=== PATIENT | female | born 1945 | race Caucasian/White ===

== ENCOUNTER 2018-03-20 20:34 | Inpatient (IN) | payer OTHER, BC ==
--- NOTE | 2018-03-20 21:03 | PDOC ---
History of Present Illness <Ayde Tang - Last Filed: 03/20/18 22:15> - History of Present Illness Initial Comments: 03/20/18 20:59 72yo F with history of HTN and HLD who presents today s/p unwitnessed fall. pt reports having an alcoholic beverage and standing up too fast. Pt reports losing her footing at this time due to her dog and falling hitting her R bottom ear and R hip. Pt denies any anticoagulation or loss of conscious. Pt denies any headaches, dizziness, blurred vision, SOB, CP/discomfort, palpitations (now and prior to fall), urinary incontinence, abdominal pain, back pain. <Federico Mendosa - Last Filed: 03/21/18 00:02> - General Chief Complaint: Injury Stated Complaint: FALL Time Seen by Provider: 03/20/18 20:47 Past History <Ayde Tang - Last Filed: 03/20/18 22:15> - Past Medical History COPD: No HTN: Yes Hypercholesterolemia: Yes - Suicide/Smoking/Psychosocial Hx Smoking History: Never smoked Have you smoked in the past 12 months: No Information on smoking cessation initiated: No Hx Alcohol Use: No Drug/Substance Use Hx: No Substance Use Type: None <DeondreFederico - Last Filed: 03/21/18 00:02> - Past Medical History Allergies/Adverse Reactions: Allergies Allergy/AdvReac Type Severity Reaction Status Date / Time No Known Allergies Allergy Verified 03/20/18 21:31 Home Medications: Ambulatory Orders Aspirin/Calcium Carbonate [Barbara Women's Aspirin Tablet] 650 each PO DAILY 03/20 Diazepam [Valium] 5 mg PO ONCE 03/20/18 Quinapril HCl [Accupril] 10 mg PO DAILY 03/20/18 Simvastatin [Zocor -] 40 mg PO DAILY 03/20/18 Review of Systems - Review of Systems Constitutional: No: Chills, Fever, Malaise, Night Sweats HEENTM: No: Blurred Vision, Nose Congestion, Throat Pain Respiratory: No: Cough, Shortness of Breath, Wheezing Cardiac (ROS): No: Chest Pain, Irregular Heart Rate, Lightheadedness, Palpitations, Syncope, Chest Tightness ABD/GI: Yes: Poor Fluid Intake. No: Constipated, Diarrhea, Nausea, Vomiting, Abdominal cramping : No: Dysuria, Frequency, Flank Pain, Incontinence Musculoskeletal: Yes: Joint Pain. No: Back Pain, Muscle Pain, Neck Pain Integumentary: No: Bruising, Pallor, Rash Neurological: No: Headache, Numbness, Tingling, Weakness, Dizziness Hematologic/Lymphatic: No: Easy Bleeding, Easy Bruising <Federico Mendosa - Last Filed: 03/21/18 00:02> *Physical Exam - Vital Signs Last Vital Signs Temp Pulse Resp BP Pulse Ox 98.0 F 81 18 131/80 96 03/20/18 20:45 03/20/18 20:45 03/20/18 20:45 03/20/18 20:45 03/20/18 20:45 <Ayde Tang - Last Filed: 03/20/18 22:15> - Vital Signs Last Vital Signs Temp Pulse Resp BP Pulse Ox 98.0 F 81 18 131/80 96 03/20/18 20:45 03/20/18 20:45 03/20/18 20:45 03/20/18 20:45 03/20/18 20:45 - Physical Exam Comments: 03/20/18 21:21 GEN: NAD, awake, alert, alcohol odor HEENT: normocephalic, EOMI, BERTHA, sclera anicteric, R ear abrasions noted, no otorrhea, no structural deformity NECK: No instability noted, no pain to palpation of spinous processes, ROM intact, no JVD, supple LUNGS: CTA bilaterally CARDIAC: RRR no murmurs appreciated ABD: Soft, NT/ND, normoactive BS, no rebound, no guarding EXT: RLE: Externally rotated, motor function intact with strength 5/5 with dorsal and plantar flexion, sensation intact in all areas, no edema, no ecchymotic areas at hip site, pain with any movement and palpation of inguinal area, 2+ DP pulses LLE: ROM intact, no edema, 2+ DP pulse, strength 5/5, sensation intact throughout <Federico Mendosa - Last Filed: 03/21/18 00:02> Heart Score/ECG Review #1 03/20/18 22:12 NSR @93 bpm, normal axis, normal R-wave progression, no ST abnormalities, no TWI , MN 170ms, QTc 465ms <Federico Mendosa - Last Filed: 03/21/18 00:02> ED Treatment Course - RADIOLOGY Radiograph Interpretation: 03/20/18 22:[address] Impression: No CT evidence of acute intracranial pathology Reported By: Salvador Echeverria MD [id number]/20/[id number] <Ayde Tang - Last Filed: 03/20/18 22:15> - LABORATORY CBC & Chemistry Diagram: 03/20/18 22:15 03/20/18 22:15 - RADIOLOGY Radiology Studies Ordered: Category Date Time Status HEAD CT WITHOUT CONTRAST [CT] Stat CT Scan 03/20/18 20:56 Ordered CHEST X-RAY PORTABLE* [RAD] Stat Radiology 03/20/18 20:56 Ordered PELVIS [RAD] Stat Radiology 03/20/18 20:56 Ordered PELVIS [RAD] Stat Radiology 03/20/18 20:56 Stop Req <Federico Mendosa - Last Filed: 03/21/18 00:02> Medical Decision Making - Medical Decision Making 03/20/18 21:04 Highly suspicious for R hip fracture due to externally rotated leg and extreme pain on ROM with neurovascular component intact --Due to [place] CT criteria Head Ct advised for age above 65yo alone --CBC, CMP, CXR, EKG, Type and screen, PT/INR, aPtt, Head CT noncontrast, R Pelvis and hip XR --Alcohol level ordered 03/20/18 21:39 R hip and Pelvis XR reveals intertrochanteric comminuted fracture --Most likely Cont[place]ras classification Type [address] Mi Sal insert 03/20/18 21:49 Dr. Stark responded --NPO after midnight --Surgery in the AM --NPO after midnight --Morphine 2mg IVP for pain control --Tetanus booster due to abrasions 03/20/18 22:12 EKG - without acute abnormalities <Federico Mendosa - Last Filed: 03/21/18 00:02> *DC/Admit/Observation/Transfer <Ayde Tang - Last Filed: 03/20/18 22:15> - Discharge Dispostion Admit: Yes <Federico Mendosa - Last Filed: 03/21/18 00:02> Diagnosis at time of Disposition: Intertrochanteric fracture of right hip Qualifiers: Encounter type: initial encounter Fracture type: closed Fracture alignment: nondisplaced Qualified Code(s): S72.144A - Nondisplaced intertrochanteric fracture of right femur, initial encounter for closed fracture - Discharge Dispostion Condition at time of disposition: Stable - Referrals Referrals: Billy Mcconnell MD [Primary Care Provider] -
[2018-03-20] MEDS ORDERED: morphine CARPU-JECT 2 MG/1 ML DISP.SYRIN IVPUSH ONE (21:48)
[2018-03-20] MEDS ORDERED: DIPHTH,PERTUSS(ACELL),TET 0.5 ML DISP.SYRIN IM ONE (21:48)
[2018-03-20] MEDS ORDERED: SODIUM CHLORIDE 0.9% 1000 ML INFUS.BAG IV ONE (21:48)
[2018-03-20] MEDS ORDERED: morphine SULFATE 4 MG/ML VIAL ONE (21:53)
--- NOTE | 2018-03-20 21:53 | PDOC ---
Attending Attestation - HPI HPI: 03/20/18 21:58 Patient is a 72 year old female with PMHx of HTN and HLD who presents today s/p unwitnessed fall. Patient states that she was walking her dog when she got up and lost her footing, hitting her right ear and injuring her right hip. She is also complains of right groin pain. . Patient reports that she had 2 alcoholic beverages prior to falling.She states that she takes 2 asprin/day. She is aware that this puts her at risk for internal bleeding. Patient denies taking any pain medications prior to arrival. Patient denies any loss of consciousness. Patient denies chest pain, shortness of breath, headache, blurry vision, changes in vision, dizziness, numbness or tingling, dysuria, abdominal, or back pain. PCP: Sandoval Mcconnell Orthopedist: Chato Stark - Physicial Exam PE: 03/20/18 22:01 Constitutional: Awake, alert, oriented. No acute distress. Head: Normocephalic. Atraumatic Eyes: PERRL. EOMI. Conjunctivae are not pale. ENT: Tenderness and abrasion to right ear. Mucous membranes are moist and intact. Posterior pharynx without exudates or erythema. Uvula midline. Neck: Supple. Full ROM. No lymphadenopathy. Cardiovascular: Regular rate. Regular rhythm. S1, S2 regular. Distal pulses are 2+ and symmetric. Pulmonary/Chest: No evidence of respiratory distress. Clear to auscultation bilaterally No wheezing, rales or rhonchi. Abdominal: Soft and non-distended. There is no tenderness. No rebound, guarding or rigidity. No organomegaly. No palpable masses. Good bowel sounds. Back: No CVA tenderness. Musculoskeletal: Right hip tenderness, RLE externally rotated and shortened. Strength intact. No edema. No cyanosis. No clubbing. No calf tenderness. Radial/pedal pulses are intact and 2+ bilaterally Skin: Skin is warm and dry. No petechiae. No purpura. Neurological: Alert and oriented to person, place, and time. Cranial nerves II -XII are grossly intact. Normal speech. Strength is grossly symmetric. No sensory deficits. Psychiatric: Good eye contact. Normal interaction, affect and behavior. <Ayde Tang - Last Filed: 03/20/18 22:00> - Resident Resident Name: Federico Mendosa - ED Attending Attestation I have performed the following: I have examined & evaluated the patient, The case was reviewed & discussed with the resident, I agree w/resident's findings & plan, Exceptions are as noted - Medical Decision Making 03/20/18 21:53 I, Dr. Lise Joseph, DO, attest that this document has been prepared under my direction and personally reviewed by me in its entirety. I further attest, that it accurately reflects all work, treatment, procedures and medical decision -making performed by me. 03/20/18 21:54 a/p: 72yo female with etoh use today and a mechanical fall -abrasion to R ear-no active bleeding -R shortened externally rotated hip w groin pain -suspect hip fracture -will check labs, ekg, cxr, head ct, pelvis/hip xray -ortho in the past has been Dr. Stark -pmd dr. mcconnell who admits to dr. woodard who is covered at night by [employer] 03/20/18 21:55 xray shows intertrochanteric R hip fx resident discussed case with Dr. stark pt updated on xray findings will need admission 03/20/18 23:[address] Bradley - accepts pt to service consult placed to ortho <Lise Joseph - Last Filed: 03/20/18 23:39>
[2018-03-20 22:25] LABS: BASO % 0.5 % (0-2.0); EOS % 1.7 % (0-4.5); HEMOGLOBIN 10.8 GM/dL (10.7-15.3); LYMPH % 10.4 % (8-40); MCH 20.5 pg (25.7-33.7); MCHC 31.6 g/dl (32.0-36.0); MEAN CELL VOLUME 64.8 fl (80-96); MEAN PLT VOLUME 8.5 fl (7.5-11.1); MONO % 4.5 % (3.8-10.2); NEUT % 82.9 % (42.8-82.8); PLATELET COUNT 226 K/MM3 (134-434); RBC 5.25 M/mm3 (3.60-5.2); RDW 15.6 % (11.6-15.6); WHITE BLOOD COUNT 14.7 K/mm3 (4.0-10.0)
[2018-03-20 22:26] LABS: ADD RBC MORPHOLOGY YES
[2018-03-20 22:54] LABS: ALBUMIN 3.8 g/dl (3.4-5.0); ANION GAP 11 (8-16); BILIRUBIN,TOTAL 0.7 mg/dL (0.2-1.0); BLOOD UREA NITROGEN 17 mg/dL (7-18); CHLORIDE 102 mmol/L (98-107); CO2 24 mmol/L (21-32); GLUCOSE,RANDOM 91 mg/dL (74-106); SGPT/ALT 33 U/L (12-78); SODIUM 137 mmol/L (136-145); TOT PROT 6.7 g/dl (6.4-8.2)
[2018-03-20 22:55] LABS: ALK PHOS 72 U/L (45-117)
[2018-03-20 22:58] LABS: POTASSIUM 4.7 mmol/L (3.5-5.1); SGOT/AST 46 U/L (15-37)
[2018-03-20 23:09] LABS: ANISOCYTOSIS 1+; OVALOCYTE 1+; PLATELET ESTIMATE ADEQUATE; TEAR DROP CELLS 1+
[2018-03-20 23:52] LABS: INR 0.96 (0.82-1.09); PROTHROMBIN TIME (PATIENT) 10.8 SEC (9.7-13.0)
[2018-03-20 23:54] LABS: URINE APPEARANCE SLCLOUDY; URINE BILIRUBIN NEGATIVE (<2.0 mg/dL); URINE BLOOD NEGATIVE (NEGATIVE); URINE COLOR YELLOW; URINE GLUCOSE (UA) NEGATIVE (NEGATIVE); URINE KETONE NEGATIVE (NEGATIVE); URINE LEUK ESTERASE NEGATIVE (NEGATIVE); URINE NITRITE NEGATIVE (NEGATIVE); URINE PROTEIN NEGATIVE (NEGATIVE); URINE UROBILINOGEN NEGATIVE mg/dL (0.2-1.0)
[2018-03-20 23:55] LABS: ACTIVATED PTT 32.2 SECONDS (26.9-34.4)
--- NOTE | 2018-03-21 00:02 | HP ---
CHIEF COMPLAINT: PCP: HISTORY OF PRESENT ILLNESS: Patient is a 72 year old female with PMHx of HTN and HLD who presents today s/p unwitnessed fall. Patient states that she was walking her dog when she got up and lost her footing, hitting her right ear and injuring her right hip. She is also complains of right groin pain. . Patient reports that she had 2 alcoholic beverages prior to falling.She states that she takes 2 asprin/day. She is aware that this puts her at risk for internal bleeding. Patient denies taking any pain medications prior to arrival. Patient denies any loss of consciousness. Patient denies chest pain, shortness of breath, headache, blurry vision, changes in vision, dizziness, numbness or tingling, dysuria, abdominal, or back pain. PCP: Sandoval Mcconnell Orthopedist: Chato Stark ER course was notable for: (1) finding of a right hip fx and right ear abrasion (2) (3) Social History: Smoking: Alcohol: + Drugs: Family History: Allergies No Known Allergies Allergy (Verified 03/20/18 21:31) HOME MEDICATIONS: Home Medications Medication Instructions Recorded Aspirin/Calcium Carbonate [Barbara 650 each PO DAILY 03/20/18 Women's Aspirin Tablet] Diazepam [Valium] 5 mg PO ONCE 03/20/18 Quinapril HCl [Accupril] 10 mg PO DAILY 03/20/18 Simvastatin [Zocor -] 40 mg PO DAILY 03/20/18 REVIEW OF SYSTEMS CONSTITUTIONAL: Absent: fever, chills, diaphoresis, generalized weakness, malaise, loss of appetite, weight change HEENT: Absent: rhinorrhea, nasal congestion, throat pain, throat swelling, difficulty swallowing, mouth swelling, ear pain, eye pain, visual changes CARDIOVASCULAR: Absent: chest pain, syncope, palpitations, irregular heart rate, lightheadedness , peripheral edema RESPIRATORY: Absent: cough, shortness of breath, dyspnea with exertion, orthopnea, wheezing, stridor, hemoptysis GASTROINTESTINAL: Absent: abdominal pain, abdominal distension, nausea, vomiting, diarrhea, constipation, melena, hematochezia GENITOURINARY: Absent: dysuria, frequency, urgency, hesitancy, hematuria, flank pain, genital pain MUSCULOSKELETAL: Absent: myalgia, arthralgia, joint swelling, back pain, neck pain, right hip pain+ SKIN: Absent: rash, itching, pallor HEMATOLOGIC/IMMUNOLOGIC: Absent: easy bleeding, easy bruising, lymphadenopathy, frequent infections ENDOCRINE: Absent: unexplained weight gain, unexplained weight loss, heat intolerance, cold intolerance NEUROLOGIC: Absent: headache, focal weakness or paresthesias, dizziness, unsteady gait, seizure, mental status changes, bladder or bowel incontinence PSYCHIATRIC: Absent: anxiety, depression, suicidal or homicidal ideation, hallucinations. PHYSICAL EXAMINATION Vital Signs - 24 hr 03/20/18 20:45 Temperature 98.0 F Pulse Rate 81 TRespiratory 18 Rate Blood Pressure 131/80 O2 Sat by Pulse 96 Oximetry (%) GENERAL: Awake, alert, and fully oriented, in no acute distress. HEAD: Normal with no signs of trauma. LUNGS: Breath sounds equal, clear to auscultation bilaterally. No wheezes, and no crackles. No accessory muscle use. HEART: Regular rate and rhythm, normal S1 and S2 without murmur, rub or gallop. ABDOMEN: Soft, nontender, not distended, normoactive bowel sounds, no guarding, no rebound, no masses. No hepatomegaly or splenomegaly. MUSCULOSKELETAL: Normal range of motion at all joints. No bony deformities or tenderness. No CVA tenderness.+ right hip pain and deformitiy with a known fx. UPPER EXTREMITIES: 2+ pulses, warm, well-perfused. No cyanosis. No clubbing. No peripheral edema. LOWER EXTREMITIES: 2+ pulses, warm, well-perfused. No calf tenderness. No peripheral edema. NEUROLOGICAL: Cranial nerves II-XII intact. Normal speech. Normal gait. PSYCHIATRIC: Cooperative. Good eye contact. Appropriate mood and affect. SKIN: Warm, dry, normal turgor, no rashes or lesions noted, normal capillary refill. Laboratory Results - last 24 hr 03/20/18 03/20/18 03/20/18 22:15 22:15 22:15 WBC 14.7 H RBC 5.25 H Hgb 10.8 Hct 34.0 MCV 64.8 L MCH 20.5 L MCHC 31.6 L RDW 15.6 Plt Count 226 MPV 8.5 Neutrophils % 82.9 H Lymphocytes % 10.4 Monocytes % 4.5 Eosinophils % 1.7 Basophils % 0.5 Hypochromia 2+ Platelet Estimate Adequate Platelet Comment No clumping noted Polychromasia 1+ Basophilic Stippling Few Anisocytosis 1+ Microcytosis 2+ Tear Drop Cells 1+ Ovalocytes 1+ Sodium 137 Potassium 4.7 Chloride 102 Carbon Dioxide 24 Anion Gap 11 BUN 17 Creatinine 1.0 Creat Clearance w eGFR 54.66 Random Glucose 91 Calcium 9.0 Total Bilirubin 0.7 AST 46 H ALT 33 Alkaline Phosphatase 72 Total Protein 6.7 Albumin 3.8 Blood Type O POSITIVE Antibody Screen Negative ASSESSMENT/PLAN: This 72 yr old female who fell landing on her right hip and abrasion to her right ear. She is noted to have a right hip fx. Problem List - Problem (1) Hip fracture Assessment/Plan: -consult to Dr. Mi austin -meme -pain meds -pre op work up Code(s): S72.009A - FRACTURE OF UNSP PART OF NECK OF UNSP FEMUR, INIT (2) Hypertension Assessment/Plan: -monitor b/p -continue home meds Code(s): I10 - ESSENTIAL (PRIMARY) HYPERTENSION Visit type - Emergency Visit Emergency Visit: Yes Care time: The patient presented to the Emergency Department on the above date and was hospitalized for further evaluation of their emergent condition. - New Patient This patient is new to me today: Yes Date on this admission: 03/21/18 - Critical Care Critical Care patient: No Hospitalist Screening - Colonoscopy Questionnaire Colonoscopy Questionnaire: Colonoscopy Questionnaire - Patient: 50 - 75 years old and never had a screening colonoscopy: Unknown History of colon or rectal polyps, or CA: Unknown History of IBD, Crohn's disease or UC: Unknown History of abdominal radiation therapy as a child: Unknown - Relative: 1 with colon or rectal CA, or polyps at age 60 or younger: Unknown Colon or rectal CA diagnosed at age 45 or younger: Unknown Multiple relatives with colon or rectal CA: Unknown - Outcome: Screening Result: Negative Screen
[2018-03-21] MEDS: DEXTROSE 5%-0.45% SALINE 1,000 ML IV SCH ×3 (00:26→14:50)
[2018-03-21] MEDS ORDERED: morphine SULFATE 4 MG/ML VIAL ONE (02:12)
[2018-03-21] MEDS: morphine SULFATE 4 MG/ML VIAL IVPUSH PRN ×5 (02:18→21:42)
[2018-03-21 04:41] VITALS: BMI 28.5
--- NOTE | 2018-03-21 09:46 | EKG ---
Test Reason : Blood Pressure : / mmHG Vent. Rate : 093 BPM Atrial Rate : 093 BPM P-R Int : 170 ms QRS Dur : 076 ms QT Int : 374 ms P-R-T Axes : 047 055 052 degrees QTc Int : 465 ms NORMAL SINUS RHYTHM WHEN COMPARED WITH ECG OF 20-FEB-2011 11:59, NO SIGNIFICANT CHANGE WAS FOUND Confirmed by GEOVANNI RESTREPO MD ([id number]) on 03/21/2018 9:46:21 AM Referred By: Confirmed By:GEOVANNI RESTREPO MD
--- NOTE | 2018-03-21 09:48 | PN ---
Progress Note, Physician Chief Complaint: Pt lying in bed in no acute distress. Reports pain is tolerable. Denies any chest discomfort, sob, n/v/d, numbness/tingling - Current Medication List Current Medications: Active Medications Dextrose/Sodium Chloride (D5-1/2ns -) 1,000 mls @ 100 mls/hr IV ASDIR EDGARDO Last Admin: 03/21/18 00:26 Dose: 100 mls/hr Morphine Sulfate (Morphine Sulfate) 2 mg IVPUSH Q4H PRN PRN Reason: PAIN LEVEL 6-10 Last Admin: 03/21/18 06:17 Dose: 2 mg - Objective Vital Signs: Vital Signs Temperature 97.7 F 03/21/18 06:06 Pulse Rate 96 H 03/21/18 06:06 Respiratory Rate 18 03/21/18 06:06 Blood Pressure 130/77 03/21/18 06:06 O2 Sat by Pulse Oximetry (%) 96 03/20/18 20:45 Constitutional: Yes: Well Nourished, No Distress Cardiovascular: Yes: WNL, Regular Rate and Rhythm. No: Bruit, Gallop Respiratory: Yes: WNL, Regular, CTA Bilaterally. No: Accessory Muscle Use, SOB , Tachypnea, Wheezes Gastrointestinal: Yes: WNL, Normal Bowel Sounds, Soft. No: Distention, Tenderness Genitourinary: Yes: Herrera Present Edema: Yes Edema: RLE: Trace Neurological: Yes: WNL, Alert, Oriented Psychiatric: Yes: WNL, Alert, Oriented Labs: CBC, BMP 03/20/18 22:15 03/20/18 22:15 INR, PTT INR 0.96 (0.82-1.09) 03/20/18 23:30 - ....Imaging X-ray: Report Reviewed (right hip fracture) Problem List - Problems (1) Fall Assessment/Plan: mechanical head ct neg xray w/ right hip fracture plan as below Code(s): W19.XXXA - UNSPECIFIED FALL, INITIAL ENCOUNTER Qualifiers: Encounter type: initial encounter Qualified Code(s): W19.XXXA - Unspecified fall, initial encounter (2) Hip fracture Assessment/Plan: fracture right hip Ortho consulted bedrest pre-op NPO, IVF morphine prn for adequate pain control herrera cardiology clearance in place OR today Code(s): S72.009A - FRACTURE OF UNSP PART OF NECK OF UNSP FEMUR, INIT Qualifiers: Encounter type: initial encounter Fracture type: closed Laterality: right Qualified Code(s): S72.001A - Fracture of unspecified part of neck of right femur, initial encounter for closed fracture (3) Hypertension Assessment/Plan: controlled continue quinapril Code(s): I10 - ESSENTIAL (PRIMARY) HYPERTENSION Qualifiers: Hypertension type: essential hypertension Qualified Code(s): I10 - Essential (primary) hypertension (4) Hyperlipidemia Assessment/Plan: chronic continue statin Code(s): E78.5 - HYPERLIPIDEMIA, UNSPECIFIED Qualifiers: Hyperlipidemia type: pure hypercholesterolemia Qualified Code(s): E78.00 - Pure hypercholesterolemia, unspecified; E78.0 - Pure hypercholesterolemia (5) Coronary artery disease Assessment/Plan: stable continue statin resume asa per ortho recs cardiology consult appreciated followed by outpt Code(s): I25.10 - ATHSCL HEART DISEASE OF [place] CORONARY ARTERY W/O ANG PCTRS Qualifiers: Coronary Disease-Associated Artery/Lesion type: [place] artery [place] vs. transplanted heart: [place] heart Associated angina: without angina Qualified Code(s): I25.10 - Atherosclerotic heart disease of [place] coronary artery without angina pectoris
[2018-03-21] MEDS ORDERED: QUINAPRIL HCL 10 MG TABLET (FP) PO SCH (11:15)
[2018-03-21] MEDS ORDERED: PROPOFOL 20 ML ONE (12:52)
[2018-03-21] MEDS ORDERED: MIDAZOLAM HCL 2 MG/2 ML SINGLE DOSE VIAL ONE (12:52)
--- NOTE | 2018-03-21 12:58 | CON.CARD ---
Consult Consult Specialty:: Cardiology Referred by:: Sandoval Mcconnell MD Reason for Consultation:: Pre-op CV evaluation - History of Present Illness Chief Complaint: Post fall right hip pain History of Present Illness: 72 yo CAD, diastolic dysfunction, HTN/HCVD, chol, presented after mechanical fall. sustained right hip fracture. She denies chest pain, dyspnea, near or true syncope, orthopnea, PND or LE edema. - History Source History Provided By: Patient Limitations to Obtaining History: No Limitations - Past Medical History Cardio/Vascular: Yes: CAD, HTN, Hyperlipdemia - Alcohol/Substance Use Hx Alcohol Use: No - Smoking History Smoking history: Never smoked Have you smoked in the past 12 months: No Home Medications - Allergies Allergies/Adverse Reactions: Allergies Allergy/AdvReac Type Severity Reaction Status Date / Time No Known Allergies Allergy Verified 03/20/18 21:31 - Home Medications Home Medications: Ambulatory Orders Aspirin/Calcium Carbonate [Barbara Women's Aspirin Tablet] 650 each PO DAILY 03/20 Diazepam [Valium] 5 mg PO ONCE 03/20/18 Quinapril HCl [Accupril] 10 mg PO DAILY 03/20/18 Simvastatin [Zocor -] 40 mg PO DAILY 03/20/18 Review of Systems - Review of Systems Musculoskeletal: reports: Joint Pain Vital Signs: Vital Signs Temperature 98.4 F 03/21/18 08:15 Pulse Rate 90 03/21/18 08:15 Respiratory Rate 18 03/21/18 08:15 Blood Pressure 139/85 03/21/18 08:15 O2 Sat by Pulse Oximetry (%) 96 03/20/18 20:45 Constitutional: Yes: No Distress, Calm, Thin Neck: Yes: Supple Respiratory: Yes: Regular, CTA Bilaterally Gastrointestinal: Yes: Normal Bowel Sounds, Soft Cardiovascular: Yes: Regular Rate and Rhythm JVD: No Carotid Bruit: No Heart Sounds: Yes: S1, S2 Extremities: Yes: External Rotation, Shortened (Right hip) Edema: No - Other Data Labs, Other Data: CBC, BMP 03/20/18 22:15 03/20/18 22:15 INR, PTT INR 0.96 (0.82-1.09) 03/20/18 23:30 Imaging - Results Chest X-ray: Report Reviewed (NAD) Cat Scan: Report Reviewed (HCT: No bleed) EKG: Report Reviewed (NSR) Problem List - Problems (1) Pre-operative cardiovascular examination Code(s): Z01.810 - ENCOUNTER FOR PREPROCEDURAL CARDIOVASCULAR EXAMINATION (2) Coronary artery disease Code(s): I25.10 - ATHSCL HEART DISEASE OF [place] CORONARY ARTERY W/O ANG PCTRS Qualifiers: Coronary Disease-Associated Artery/Lesion type: [place] artery [place] vs. transplanted heart: [place] heart Associated angina: without angina Qualified Code(s): I25.10 - Atherosclerotic heart disease of [place] coronary artery without angina pectoris (3) Hip fracture Code(s): S72.009A - FRACTURE OF UNSP PART OF NECK OF UNSP FEMUR, INIT Qualifiers: Encounter type: initial encounter Fracture type: closed Laterality: right Qualified Code(s): S72.001A - Fracture of unspecified part of neck of right femur, initial encounter for closed fracture (4) Hyperlipidemia Code(s): E78.5 - HYPERLIPIDEMIA, UNSPECIFIED Qualifiers: Hyperlipidemia type: pure hypercholesterolemia Qualified Code(s): E78.00 - Pure hypercholesterolemia, unspecified; E78.0 - Pure hypercholesterolemia (5) Hypertension Code(s): I10 - ESSENTIAL (PRIMARY) HYPERTENSION Qualifiers: Hypertension type: essential hypertension Qualified Code(s): I10 - Essential (primary) hypertension Assessment/Plan 10/07/2013 Echo: Normal LV size and fxn tr-mild MR 10/08/2013 P-Myoview: No ischemia, normal LV fxn 1. Pre-op CV evaluation, right IT fracture prior to right hip IM 2. CAD, angina pectoris 3. HTN/HCVD 4. Hyperlipidemia P:1. Given absence of sxs of acute coronary syndrome, decompensated CHF or malignant arrhythmia, and negative cardiac functional study within last 5 years , there are no absolute CV-contraindications against proceeding with orthopedic procedure from CV-standpoint 2. Continue Accupril 10 qd, Lipitor 20 qd, resume ASA 81 qd once pist-op hemostasis achieved 3. Analgesia as needed, DVT prophylaxis 4. Thank you for consultative opportunity
--- NOTE | 2018-03-21 13:05 | CONSULT ---
Consult - text type - Consultation Consultation Note: FULL CONSULT DICTATED IMP:RIGHT IT HIP FX PLAN: RIGHT GAMMA NAIL
[2018-03-21] MEDS ORDERED: ceFAZolin SODIUM 1 GM VIAL ONE ×2 (13:13→21:12)
[2018-03-21] MEDS ORDERED: ceFAZolin SODIUM 1 GM VIAL IVPB ONE (13:27)
--- NOTE | 2018-03-21 13:44 | OP ---
Operative Note - Note: Operative Date: 03/21/18 Pre-Operative Diagnosis: R IT HIP FX Operation: RIGHT GAMMA NAIL Post-Operative Diagnosis: Same as Pre-op Anesthesia: General Estimated Blood Loss (mls): 100 Operative Report Dictated: Yes
[2018-03-21] MEDS ORDERED: LACTATED RINGERS SOLUTION 1,000 ML IV SCH (13:45)
[2018-03-21] MEDS ORDERED: ACETAMINOPHEN 325 MG TABLET (FP) PO PRN (14:55)
[2018-03-21] MEDS ORDERED: CEFAZOLIN 1 GM/D5W 50 ML IVPB SCH (18:00)
--- NOTE | 2018-03-21 19:13 | CONS ---
DATE OF CONSULTATION: 03/21/2018 HISTORY: Patient is a 72-year-old female well known to my practice status post mechanical fall injuring her right hip. The patient complained of inability to walk. Negative LOC, negative lightheadedness, blurry vision, or dizziness. PHYSICAL EXAMINATION: The patient has a shortened and externally rotated right lower extremity. Marked increased pain with range of motion of the hip. Good motion of the knee, ankle, and toes. Calves soft and nontender, vascularly intact. X-rays, which were reviewed from the emergency room showed a comminuted right intertrochanteric hip fracture. IMPRESSION: Right intertrochanteric hip fracture. PLAN: Risks, benefits, and alternatives discussed with patient and with daughter in great detail. Patient will go to the OR this afternoon for a right Gamma nailing. LISSETH AKERS M.D. SITA/[id number]
--- NOTE | 2018-03-21 21:02 | SPEC ---
DATE OF OPERATION: 03/21/2018 PREOPERATIVE DIAGNOSIS: Right intertrochanteric hip fracture. POSTOPERATIVE DIAGNOSIS: Right intertrochanteric hip fracture. PROCEDURE: Right Gamma nailing. SURGICAL ATTENDING: Chato Stark MD CERTIFIED ORTHOTIST: LEATHA Richards ANESTHESIA: LMA. CLOSURE: A short Gamma nail with appropriate interlocking screws, 0 Vicryl fascia, 2-0 subcutaneous, srinivasan to skin. ESTIMATED BLOOD LOSS: 100 mL COMPLICATIONS: None. CONDITION: To Recovery in stable condition. DESCRIPTION OF THE PROCEDURE: The patient was taken to the operating room on March 21, 2018. IV Kefzol was administered prophylactically prior to the case. Anesthesia was administered by the anesthesiologist. The patient was then fastened to the fracture table with all prominences well padded. Excellent reduction of the fracture was confirmed in AP and lateral plane by use of fluoroscopy. The right hip area was then prepped and draped in the usual sterile fashion by use of a shower curtain. A small 2-cm longitudinal incision over the tip of the greater trochanter was incised, hemostasis achieved using Bovie cautery. Sharp dissection was carried through the fascia. A guidewire was drilled from the tip of the greater trochanter into the intramedullary canal past the fracture. This was directed by fluoroscopy in both the AP and lateral plane. This was overreamed with a proximal reamer. A short Gamma nail was then malleted down into place. Using the outrigger and a small stab incision laterally, a guidewire was drilled from the lateral aspect of the femur, through the juan josé, through the neck into the femoral head. Proper placement was confirmed in the AP and lateral plane by using the image intensifier. The guidewire was measured for length, reamed with a triple reamer, and then screwed with the appropriate-sized lag screw. With the traction removed, the compression device was used to compress the fracture. A set screw was placed from above in the dynamic fashion. Again using the outrigger and through a small stab incision distally, a distal hole was drilled, depth gauged and screwed with the appropriate length locking screw in the static hole. The outrigger was removed. The x-rays in the AP and lateral plane revealed excellent position of the hardware with excellent reduction of the fracture. All incisions were irrigated out with copious amounts of irrigation. The fascia was closed in 0 Vicryl, 2-0 subcutaneous, and srinivasan to the skin. Sterile pressure dressing was applied, patient awakened from anesthesia and transferred to Recovery in stable condition. No complications. Estimated blood loss 100 mL. Sorin [id number]
[2018-03-21] MEDS ORDERED: DEXTROSE 5%-WATER - 50 ML IVPB ONE (21:12)
[2018-03-21] MEDS: CEFAZOLIN 1 GM in DEXTROSE 5%-WATER - 50 ML IVPB SCH (21:25)
[2018-03-21] MEDS ORDERED: CEFAZOLIN 1 GM/D5W 1 GM/50 ML BAG IVPB SCH (21:30)
[2018-03-22] MEDS: morphine SULFATE 4 MG/ML VIAL IVPUSH PRN ×2 (01:59→20:07)
[2018-03-22] MEDS ORDERED: DEXTROSE 5%-WATER - 50 ML IVPB ONE (05:58)
[2018-03-22] MEDS ORDERED: ceFAZolin SODIUM 1 GM VIAL ONE (05:58)
[2018-03-22] MEDS: CEFAZOLIN 1 GM in DEXTROSE 5%-WATER - 50 ML IVPB SCH (06:10)
[2018-03-22 06:52] LABS: BASO % 0.3 % (0-2.0); EOS % 0.4 % (0-4.5); HEMATOCRIT 19.5 % (32.4-45.2); LYMPH % 16.6 % (8-40); MCH 21.2 pg (25.7-33.7); MCHC 32.5 g/dl (32.0-36.0); MEAN CELL VOLUME 65.2 fl (80-96); MEAN PLT VOLUME 8.5 fl (7.5-11.1); MONO % 8.3 % (3.8-10.2); NEUT % 74.4 % (42.8-82.8); PLATELET COUNT 147 K/MM3 (134-434); RBC 2.99 M/mm3 (3.60-5.2); RDW 15.3 % (11.6-15.6)
[2018-03-22 07:08] LABS: HEMOGLOBIN 6.3 GM/dL (10.7-15.3)
[2018-03-22 07:20] LABS: ALBUMIN 2.5 g/dl (3.4-5.0); ANION GAP 2 (8-16); BLOOD UREA NITROGEN 11 mg/dL (7-18); CALCIUM 7.7 mg/dL (8.5-10.1); CHLORIDE 107 mmol/L (98-107); CO2 30 mmol/L (21-32); GLUCOSE,RANDOM 114 mg/dL (74-106); POTASSIUM 4.9 mmol/L (3.5-5.1); SGOT/AST 16 U/L (15-37); SGPT/ALT 17 U/L (12-78); SODIUM 139 mmol/L (136-145)
[2018-03-22 07:23] LABS: ALK PHOS 42 U/L (45-117); BILIRUBIN,TOTAL 0.7 mg/dL (0.2-1.0); CREATININE 0.9 mg/dL (0.55-1.02); TOT PROT 4.6 g/dl (6.4-8.2)
[2018-03-22] MEDS ORDERED: ASPIRIN 325 MG TABLET PO SCH ×2 (10:00)
--- NOTE | 2018-03-22 10:07 | PN ---
Progress Note (short form) - Note Progress Note: Anesthesiology Post-op POD#1 s/p right gamma nail of femur under GA. Pt. is sitting up in bed. She states that she feels "100% better" and has no complaints this morning. She denies pain at present. She has no n/v or other anesthesia-related issues. This morning there is a significant drop in H&H; at present, transfusion has been ordered but the pt. isn't sure that she wants it. She denies any palpitations, h/a or dizziness. There is no obvious, active bleeding noted. She has not been OOB yet. VSS. 72 y.o. woman s/p right gamma nail of femur with post-op anemia and otherwise stable post-operative course. Will defer to med/surg team as far as management of anemia; repeat H&H has been drawn. Continue current pain meds as ordered.
[2018-03-22] MEDS ORDERED: PT OWN MED DRAWER 7, Y5N ONE (10:47)
[2018-03-22] MEDS: QUINAPRIL HCL 10 MG TABLET (FP) PO SCH (11:05)
[2018-03-22] MEDS: oxyCODONE HCL 5 MG TABLET PO PRN (11:06)
[2018-03-22 11:43] LABS: HEMATOCRIT 19.3 % (32.4-45.2); MCH 21.2 pg (25.7-33.7); MCHC 32.9 g/dl (32.0-36.0); MEAN CELL VOLUME 64.6 fl (80-96); MEAN PLT VOLUME 7.8 fl (7.5-11.1); PLATELET COUNT 157 K/MM3 (134-434); RBC 2.99 M/mm3 (3.60-5.2); RDW 15.8 % (11.6-15.6); WHITE BLOOD COUNT 9.3 K/mm3 (4.0-10.0)
[2018-03-22 11:46] LABS: HEMOGLOBIN 6.4 GM/dL (10.7-15.3)
--- NOTE | 2018-03-22 12:56 | PN ---
Progress Note (short form) - Note Progress Note: Medical coverage for Dr. Cotto Subjective: The patient was seen and examined at the bedside, she reports feeling good today Hgb this AM 6.3, per Dr. Stark transfuse 2u PRBC Discussed with the patient. The patient reports her baseline Hgb ~8. She reports a history of transfusion reaction and that she does NOT want a blood transfusion at this time. Will monitor H/H Discontinue ASA Current Medications Generic Name Dose Route Start Last Admin Trade Name Freq PRN Reason Stop Dose Admin Acetaminophen 325 mg 03/21/18 14:55 Tylenol - PO Q4H PRN PAIN LEVEL 1-5 Dextrose/Sodium Chloride 1,000 mls @ 100 mls/hr 03/21/18 14:03 03/21/18 14:50 D5-1/2ns - IV 100 mls/hr ASDIR EDGARDO Administration Morphine Sulfate 2 mg 03/21/18 14:03 03/22/18 01:59 Morphine Sulfate IVPUSH 2 mg Q4H PRN Administration PAIN LEVEL 6-10 Oxycodone HCl 5 mg 03/21/18 14:55 03/22/18 11:06 Roxicodone - PO 5 mg Q4H PRN Administration PAIN LEVEL 1-5 Quinapril HCl 10 mg 03/22/18 10:00 03/22/18 11:05 Accupril - PO 10 mg DAILY EDGARDO Administration Objective: Vital Signs Period Temp Pulse Resp BP Sys/Styles Pulse Ox Last 24 Hr 97.8 F-99.1 F 74-117 14-20 110-165/66-94 94-100 Physical Exam: General: NAD, A&Ox3 Lungs: CTA bilaterally Heart: RRR, S1S2 Abd: Soft, non-tender, non-distended Ext: Right hip with dressing, c/d/i CBCD WBC 9.3 K/mm3 (4.0-10.0) D 03/22/18 11:38 RBC 2.99 M/mm3 (3.60-5.2) L 03/22/18 11:38 Hgb 6.4 GM/dL (10.7-15.3) L* 03/22/18 11:38 Hct 19.3 % (32.4-45.2) L 03/22/18 11:38 MCV 64.6 fl (80-96) L 03/22/18 11:38 MCHC 32.9 g/dl (32.0-36.0) 03/22/18 11:38 RDW 15.8 % (11.6-15.6) H 03/22/18 11:38 Plt Count 157 K/MM3 (134-434) 03/22/18 11:38 MPV 7.8 fl (7.5-11.1) 03/22/18 11:38 CMP Sodium 139 mmol/L (136-145) 03/22/18 06:25 Potassium 4.9 mmol/L (3.5-5.1) 03/22/18 06:25 Chloride 107 mmol/L (98-107) 03/22/18 06:25 Carbon Dioxide 30 mmol/L (21-32) 03/22/18 06:25 Anion Gap 2 (8-16) L 03/22/18 06:25 BUN 11 mg/dL (7-18) 03/22/18 06:25 Creatinine 0.9 mg/dL (0.55-1.02) 03/22/18 06:25 Creat Clearance w eGFR > 60 (>60) 03/22/18 06:25 Random Glucose 114 mg/dL (74-106) H 03/22/18 06:25 Calcium 7.7 mg/dL (8.5-10.1) L 03/22/18 06:25 Total Bilirubin 0.7 mg/dL (0.2-1.0) 03/22/18 06:25 AST 16 U/L (15-37) 03/22/18 06:25 ALT 17 U/L (12-78) 03/22/18 06:25 Alkaline Phosphatase 42 U/L (45-117) L 03/22/18 06:25 Total Protein 4.6 g/dl (6.4-8.2) L 03/22/18 06:25 Albumin 2.5 g/dl (3.4-5.0) L 03/22/18 06:25 Microbiology 03/20/18 23:45 Urine - Urine Sal Urine Culture - Final NO GROWTH OBTAINED Assessment: This is a 72 year old female with PMHx of HTN and hyperlipidemia CAD , diastolic dysfunction, who presented to the ED with fall and was found to have a right intertrochanteric fracture Plan 1) Right intertrochanteric fracture - POD #1 right gamma nail - Oxycodone/Acetaminophen prn pain - Sal removed today - Appreciate ortho consult 2) Severe blood loss anemia - Hgb 10.8->6.3 - 2u PRBC recommended per surgery, patient is refusing stating hx of transfusion reactions and Thalasemia - Continue to monitor H/H closely 3) CAD - Hold ASA 2/2 acute drop in Hgb - Resume statin 4) HTN - Continue Accupril 5) Diastolic dysfunction - No signs of decompensated CHF at this time 6) F/E/N: - Sodium controlled diet - Monitor electrolytes 7) Prophylaxis: - Hold all chemical DVT prophylaxis 2/2 severe anemia - PT - TEDs bilaterally 8) Dispo: - Requires continued inpatient care CODE STATUS: FULL CODE Visit type - Emergency Visit Emergency Visit: Yes ED Registration Date: 03/21/18 Care time: The patient presented to the Emergency Department on the above date and was hospitalized for further evaluation of their emergent condition. - New Patient This patient is new to me today: Yes Date on this admission: 03/22/18 - Critical Care Critical Care patient: No
[2018-03-22 15:47] LABS: MCH 20.9 pg (25.7-33.7); MCHC 32.1 g/dl (32.0-36.0); MEAN CELL VOLUME 65.2 fl (80-96); MEAN PLT VOLUME 8.5 fl (7.5-11.1); PLATELET COUNT 146 K/MM3 (134-434); RBC 2.78 M/mm3 (3.60-5.2); RDW 15.7 % (11.6-15.6); WHITE BLOOD COUNT 8.7 K/mm3 (4.0-10.0)
[2018-03-22 15:54] LABS: HEMATOCRIT 18.1 % (32.4-45.2); HEMOGLOBIN 5.8 GM/dL (10.7-15.3)
--- NOTE | 2018-03-22 17:51 | PN ---
Progress Note, Physician History of Present Illness: POD#1 post gamma nail, denies chest pain, dyspnea, near or true syncope, fatigue. Post-op anemia noted, but has h/o transfusion reaction. - Current Medication List Current Medications: Active Medications Acetaminophen (Tylenol -) 325 mg PO Q4H PRN PRN Reason: PAIN LEVEL 1-5 Atorvastatin Calcium (Lipitor -) 20 mg PO HS [facility] Dextrose/Sodium Chloride (D5-1/2ns -) 1,000 mls @ 100 mls/hr IV ASDIR EDGARDO Last Admin: 03/21/18 14:50 Dose: 100 mls/hr Morphine Sulfate (Morphine Sulfate) 2 mg IVPUSH Q4H PRN PRN Reason: PAIN LEVEL 6-10 Last Admin: 03/22/18 01:59 Dose: 2 mg Oxycodone HCl (Roxicodone -) 5 mg PO Q4H PRN PRN Reason: PAIN LEVEL 1-5 Last Admin: 03/22/18 11:06 Dose: 5 mg Quinapril HCl (Accupril -) 10 mg PO DAILY [facility] Last Admin: 03/22/18 11:05 Dose: 10 mg - Objective Vital Signs: Vital Signs Temperature 98.5 F 03/22/18 14:47 Pulse Rate 105 H 03/22/18 14:47 Respiratory Rate 18 03/22/18 10:00 Blood Pressure 96/61 03/22/18 14:47 O2 Sat by Pulse Oximetry (%) 96 03/21/18 21:00 Constitutional: Yes: No Distress, Calm Neck: Yes: Supple Cardiovascular: Yes: Regular Rate and Rhythm Respiratory: Yes: Regular, Diminished, On Nasal O2 Gastrointestinal: Yes: Normal Bowel Sounds, Soft Edema: No Labs: CBC, BMP 03/22/18 14:45 03/22/18 06:25 INR, PTT INR 0.96 (0.82-1.09) 03/20/18 23:30 Problem List - Problems (1) Coronary artery disease Code(s): I25.10 - ATHSCL HEART DISEASE OF [place] CORONARY ARTERY W/O ANG PCTRS Qualifiers: Coronary Disease-Associated Artery/Lesion type: [place] artery [place] vs. transplanted heart: [place] heart Associated angina: without angina Qualified Code(s): I25.10 - Atherosclerotic heart disease of [place] coronary artery without angina pectoris (2) Hip fracture Code(s): S72.009A - FRACTURE OF UNSP PART OF NECK OF UNSP FEMUR, INIT Qualifiers: Encounter type: subsequent encounter Fracture type: closed Laterality: right (3) Hyperlipidemia Code(s): E78.5 - HYPERLIPIDEMIA, UNSPECIFIED Qualifiers: Hyperlipidemia type: pure hypercholesterolemia Qualified Code(s): E78.00 - Pure hypercholesterolemia, unspecified; E78.0 - Pure hypercholesterolemia (4) Hypertension Code(s): I10 - ESSENTIAL (PRIMARY) HYPERTENSION Qualifiers: Hypertension type: essential hypertension Qualified Code(s): I10 - Essential (primary) hypertension Assessment/Plan 10/07/2013 Echo: Normal LV size and fxn tr-mild MR 10/08/2013 P-Myoview: No ischemia, normal LV fxn 1. Right IT fracture POD#1 right gamma nail 2. Post-op anemia 3. CAD, angina pectoris 4. HTN/HCVD 5. Hyperlipidemia P:1. Transfusion deferred due to h/o transfusion reaction, try iron and epo, f/ u Hgb 2. Continue Accupril 10 qd, Lipitor 20 qd, resume ASA 81 qd once post-op hemostasis achieved and Hgb stabilizes 3. Analgesia as needed, mechanical DVT prophylaxis
[2018-03-22] MEDS ORDERED: FAMOTIDINE 20 MG/50 ML IVPB 20 MG/50 ML MG IVPB ONE (18:30)
[2018-03-22] MEDS ORDERED: predniSONE 20 MG TABLET (UD) PO ONE (18:30)
[2018-03-22 19:37] LABS: WHITE BLOOD COUNT 8.5 K/mm3 (4.0-10.0)
[2018-03-22 19:39] LABS: HEMATOCRIT 17.4 % (32.4-45.2); MCH 20.9 pg (25.7-33.7); MCHC 31.9 g/dl (32.0-36.0); MEAN CELL VOLUME 65.7 fl (80-96); MEAN PLT VOLUME 8.6 fl (7.5-11.1); PLATELET COUNT 149 K/MM3 (134-434); RBC 2.64 M/mm3 (3.60-5.2); RDW 15.6 % (11.6-15.6)
[2018-03-22 19:43] LABS: HEMOGLOBIN 5.5 GM/dL (10.7-15.3)
[2018-03-22] MEDS: DEXTROSE 5%-0.45% SALINE 1,000 ML IV SCH (20:45)
[2018-03-22] MEDS ORDERED: DEXAMETHASONE SOD PHOSPHATE 4 MG/1 ML VIAL IVPB ONE (21:45)
[2018-03-22] MEDS ORDERED: DEXAMETHASONE SOD PHOSPHATE 10 MG/1 ML VIAL IVPB ONE (21:45)
[2018-03-22] MEDS: ATORVASTATIN CA 20 MG TABLET (FP) PO SCH (21:52)
[2018-03-22 22:06] LABS: PROTHROMBIN TIME (PATIENT) 11.3 SEC (9.7-13.0)
[2018-03-23 06:32] LABS: HEMATOCRIT 21.1 % (32.4-45.2); MCH 22.8 pg (25.7-33.7); MEAN PLT VOLUME 9.6 fl (7.5-11.1); PLATELET COUNT 169 K/MM3 (134-434); RBC 3.05 M/mm3 (3.60-5.2); RDW 19.8 % (11.6-15.6); WHITE BLOOD COUNT 6.3 K/mm3 (4.0-10.0)
--- NOTE | 2018-03-23 09:22 | CONSULT ---
Consult - text type - Consultation Consultation Note: HEMATOLOGY CONSULT NOTE : Patient is a 72 year old female who presented with an unwitnessed fall. with PMHx of HTN and HLD who presents today s/p unwitnessed fall. She did not have any cardio repiratory or neurological symptoms prior to the fall. Hence this was a mechanical fall and she was found to have a Right intertrochanteric fracture and is currently POD #2 right gamma nail. Regarding her history of anemia, she reports she has had it since her . 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 She does not have a h/o of abnormal bleeding. She had one transfusion in the post period at which time she broke out in a rash and felt her throat was closing. Apart form that she has no other h/o of periodic blood transfusions. She is [place]. No h/o of sickle cell crisis . She has anxiety crisis and she takes diazepam preiodically. PCP: Sandoval Mcconnell Orthopedist: Chato Stark Social History: Smoking: Alcohol: + Drugs: Family History: Allergies No Known Allergies Allergy (Verified 03/20/18 21:31) HOME MEDICATIONS: Home Medications Medication Instructions Recorded Aspirin/Calcium Carbonate [Barbara 650 each PO DAILY 03/20/18 Women's Aspirin Tablet] Diazepam [Valium] 5 mg PO ONCE 03/20/18 Quinapril HCl [Accupril] 10 mg PO DAILY 03/20/18 Simvastatin [Zocor -] 40 mg PO DAILY 03/20/18 REVIEW OF SYSTEMS CONSTITUTIONAL: Absent: fever, chills, diaphoresis, generalized weakness, malaise, loss of appetite, weight change HEENT: Absent: rhinorrhea, nasal congestion, throat pain, throat swelling, difficulty swallowing, mouth swelling, ear pain, eye pain, visual changes CARDIOVASCULAR: Absent: chest pain, syncope, palpitations, irregular heart rate, lightheadedness , peripheral edema RESPIRATORY: Absent: cough, shortness of breath, dyspnea with exertion, orthopnea, wheezing, stridor, hemoptysis GASTROINTESTINAL: Absent: abdominal pain, abdominal distension, nausea, vomiting, diarrhea, constipation, melena, hematochezia GENITOURINARY: Absent: dysuria, frequency, urgency, hesitancy, hematuria, flank pain, genital pain MUSCULOSKELETAL: Absent: myalgia, arthralgia, joint swelling, back pain, neck pain, right hip pain+ SKIN: Absent: rash, itching, pallor HEMATOLOGIC/IMMUNOLOGIC: Absent: easy bleeding, easy bruising, lymphadenopathy, frequent infections ENDOCRINE: Absent: unexplained weight gain, unexplained weight loss, heat intolerance, cold intolerance NEUROLOGIC: Absent: headache, focal weakness or paresthesias, dizziness, unsteady gait, seizure, mental status changes, bladder or bowel incontinence PSYCHIATRIC: Absent: anxiety, depression, suicidal or homicidal ideation, hallucinations. PHYSICAL EXAMINATION Vital Signs Period Temp Pulse Resp BP Sys/Styles Pulse Ox Last 24 Hr 98 F-99.9 F 77-110 18-20 96-130/54-75 97 GENERAL: Awake, alert, and fully oriented, in no acute distress. HEAD: Normal with no signs of trauma. LUNGS: Breath sounds equal, clear to auscultation bilaterally. No wheezes, and no crackles. No accessory muscle use. HEART: Regular rate and rhythm, normal S1 and S2 without murmur, rub or gallop. ABDOMEN: Soft, nontender, not distended, normoactive bowel sounds, no guarding, no rebound, no masses. No hepatomegaly or splenomegaly. MUSCULOSKELETAL: Normal range of motion at all joints. No bony deformities or tenderness. No CVA tenderness.+ right hip pain UPPER EXTREMITIES: 2+ pulses, warm, well-perfused. No cyanosis. No clubbing. No peripheral edema. LOWER EXTREMITIES: 2+ pulses, warm, well-perfused. No calf tenderness. No peripheral edema. NEUROLOGICAL: Cranial nerves II-XII intact. Normal speech. Normal gait. PSYCHIATRIC: Cooperative. Good eye contact. Appropriate mood and affect. SKIN: Warm, dry, normal turgor, no rashes or lesions noted, normal capillary refill. CBC, BMP 03/23/18 05:00 03/22/18 06:25 ASSESSMENT/PLAN: 72 yr old female who is s/p mechanical fall, R. intertrochanteric fracture of the femur, POD #2 with gamma nail fixation and we are consulted for anemia. 1. Anemia Cause : Thalessemia (low MCV of 67) when she came in and Blood loss anemia due to recent surgery +/- iron deficiency We can investigate the other causes of anemia when she is more stable I will order LDH and jay to r/o hemolysis as a cause even though it is unlikely. Once she is more stable and as an outpatient we will send off Hb electrophoresis and other tests to prove her thalessemia 2. Blood transfusion -She initially declined the blood transfusion and then agreed -She did not ahve any reactions to the blood unit yesterday -i have explained to her apart form cross matching it is difficult to predict for allergic reactions in different units of blood. -In order to avoid transfusion reactions, we will give dex 10 mg iv, benadryl 25 mg iv and pepcid 20 mg iv before the 2nd unit of blood transfusion -She has had an appropriate response to the blood transfusion and her Hb increased to 7 -We will transfuse a second unit today with the premedications -Dr. Stark to evaluate if there is a post op blood loss vs equilibration - Code(s): S72.009A - FRACTURE OF UNSP PART OF NECK OF UNSP FEMUR, INIT Code(s): I10 - ESSENTIAL (PRIMARY) HYPERTENSION
[2018-03-23] MEDS ORDERED: PT OWN MED DRAWER 7, Y5N ONE (09:30)
[2018-03-23] MEDS ORDERED: PATIENT'S OWN MEDICATION (NON-FORMULARY) (Simvastatin 40 MG) PO SCH (10:00)
[2018-03-23] MEDS ORDERED: DEXAMETHASONE SOD PHOSPHATE 4 MG/1 ML VIAL IVPB ONE (10:00)
[2018-03-23] MEDS: FAMOTIDINE 20 MG/50 ML IVPB 20 MG/50 ML MG IVPB SCH ×2 (10:04→21:49)
[2018-03-23] MEDS: QUINAPRIL HCL 10 MG TABLET (FP) PO SCH (10:14)
--- NOTE | 2018-03-23 10:18 | PN ---
Progress Note (short form) - Note Progress Note: AVSS COMFORTABLE CALF SOFT AND NT NVI INCISION CLEAN AND DRY MILD SWELLING RIGHT THIGH IMP: DOING WELL BUT WITH SIGNIFICANT POST OP ANEMIA PLAN: TRANSFUSE SECOND UNIT PRBCs TODAY, HOLD ANTICOAGULATION
--- NOTE | 2018-03-23 11:20 | PN ---
Progress Note, Physician History of Present Illness: POD#2 post gamma nail, denies chest pain, dyspnea, near or true syncope, fatigue. Post-op anemia noted, and tolerated 1st U pRBC with pre-meds and appropriate Hgb rise and increase in energy without transfusion reaction. - Current Medication List Current Medications: Active Medications Acetaminophen (Tylenol -) 325 mg PO Q4H PRN PRN Reason: PAIN LEVEL 1-5 Atorvastatin Calcium (Lipitor -) 20 mg PO HS [facility] Last Admin: 03/22/18 21:52 Dose: 20 mg Dextrose/Sodium Chloride (D5-1/2ns -) 1,000 mls @ 100 mls/hr IV ASDIR [facility] Last Admin: 03/22/18 20:45 Dose: 100 mls/hr Famotidine/Sodium Chloride (Pepcid 20 Mg Premixed Ivpb -) 20 mg in 50 mls @ 100 mls/hr IVPB BID [facility] Stop: 03/23/18 23:59 Last Admin: 03/23/18 10:04 Dose: 100 mls/hr Morphine Sulfate (Morphine Sulfate) 2 mg IVPUSH Q4H PRN PRN Reason: PAIN LEVEL 6-10 Last Admin: 03/22/18 20:07 Dose: 2 mg Oxycodone HCl (Roxicodone -) 5 mg PO Q4H PRN PRN Reason: PAIN LEVEL 1-5 Last Admin: 03/22/18 11:06 Dose: 5 mg Quinapril HCl (Accupril -) 10 mg PO DAILY [facility] Last Admin: 03/23/18 10:14 Dose: 10 mg - Objective Vital Signs: Vital Signs Temperature 98.4 F 03/23/18 10:00 Pulse Rate 98 H 03/23/18 10:00 Respiratory Rate 18 03/23/18 10:00 Blood Pressure 126/64 03/23/18 10:00 O2 Sat by Pulse Oximetry (%) 97 03/22/18 21:00 Constitutional: Yes: No Distress, Calm Neck: Yes: Supple Cardiovascular: Yes: Regular Rate and Rhythm Respiratory: Yes: Regular, CTA Bilaterally Gastrointestinal: Yes: Normal Bowel Sounds, Soft Edema: No Labs: CBC, BMP 03/23/18 05:00 03/22/18 06:25 INR, PTT INR 1.00 (0.82-1.09) 03/22/18 21:40 Fibrinogen 471.0 mg/dL (238-498) 03/22/18 21:40 - ....Imaging EKG: Report Reviewed (Tele: Sinus tachycardia) Problem List - Problems (1) Coronary artery disease Code(s): I25.10 - ATHSCL HEART DISEASE OF [place] CORONARY ARTERY W/O ANG PCTRS Qualifiers: Coronary Disease-Associated Artery/Lesion type: [place] artery [place] vs. transplanted heart: [place] heart Associated angina: without angina Qualified Code(s): I25.10 - Atherosclerotic heart disease of [place] coronary artery without angina pectoris (2) Hip fracture Code(s): S72.009A - FRACTURE OF UNSP PART OF NECK OF UNSP FEMUR, INIT Qualifiers: Encounter type: subsequent encounter Fracture type: closed Laterality: right (3) Hyperlipidemia Code(s): E78.5 - HYPERLIPIDEMIA, UNSPECIFIED Qualifiers: Hyperlipidemia type: pure hypercholesterolemia Qualified Code(s): E78.00 - Pure hypercholesterolemia, unspecified; E78.0 - Pure hypercholesterolemia (4) Hypertension Code(s): I10 - ESSENTIAL (PRIMARY) HYPERTENSION Qualifiers: Hypertension type: essential hypertension Qualified Code(s): I10 - Essential (primary) hypertension Assessment/Plan 10/07/2013 Echo: Normal LV size and fxn tr-mild MR 10/08/2013 P-Myoview: No ischemia, normal LV fxn 1. Right IT fracture POD#1 right gamma nail 2. Post-op anemia with underlying thalessemia +/- iron deficiency 3. CAD, angina pectoris 4. HTN/HCVD 5. Hyperlipidemia P:1. Transfusion pRBC with pre-medication per heme, f/u Hgb 2. Continue Accupril 10 qd, Lipitor 20 qd, resume ASA 81 qd once post-op hemostasis achieved and Hgb stabilizes 3. Analgesia as needed, mechanical DVT prophylaxis
--- NOTE | 2018-03-23 16:58 | PN ---
Progress Note (short form) - Note Progress Note: Medical coverage for Dr. Cotto Subjective: The patient was seen and examined at the bedside, she has no complaints at this time. Completing her second unit of PRBC Current Medications Generic Name Dose Route Start Last Admin Trade Name Freq PRN Reason Stop Dose Admin Acetaminophen 325 mg 03/21/18 14:55 Tylenol - PO Q4H PRN PAIN LEVEL 1-5 Atorvastatin Calcium 20 mg 03/22/18 22:00 03/22/18 21:52 Lipitor - PO 20 mg HS EDGARDO Administration Dextrose/Sodium Chloride 1,000 mls @ 100 mls/hr 03/21/18 14:03 03/22/18 20:45 D5-1/2ns - IV 100 mls/hr ASDIR EDGARDO Administration Famotidine/Sodium Chloride 20 mg in 50 mls @ 100 mls/hr 03/23/18 10:00 10:04 Pepcid 20 Mg Premixed Ivpb - IVPB 03/23/18 23:59 100 mls/hr BID EDGARDO Administration Morphine Sulfate 2 mg 03/21/18 14:03 03/22/18 20:07 Morphine Sulfate IVPUSH 2 mg Q4H PRN Administration PAIN LEVEL 6-10 Oxycodone HCl 5 mg 03/21/18 14:55 03/22/18 11:06 Roxicodone - PO 5 mg Q4H PRN Administration PAIN LEVEL 1-5 Quinapril HCl 10 mg 03/22/18 10:00 03/23/18 10:14 Accupril - PO 10 mg DAILY EDGARDO Administration Objective: Vital Signs Period Temp Pulse Resp BP Sys/Styles Pulse Ox Last 24 Hr 98.0 F-99.9 F 77-110 18-20 100-139/54-79 97-100 Physical Exam: General: NAD, A&Ox3 Lungs: CTA bilaterally Heart: RRR, S1S2 Abd: Soft, non-tender, non-distended Ext: Right thigh swelling, non-tender. Right hip with srinivasan, c/d/i CBCD WBC 6.3 K/mm3 (4.0-10.0) 03/23/18 05:00 RBC 3.05 M/mm3 (3.60-5.2) L 03/23/18 05:00 Hgb 7.0 GM/dL (10.7-15.3) L D 03/23/18 05:00 Hct 21.1 % (32.4-45.2) L D 03/23/18 05:00 MCV 69.0 fl (80-96) L 03/23/18 05:00 MCHC 33.0 g/dl (32.0-36.0) 03/23/18 05:00 RDW 19.8 % (11.6-15.6) H D 03/23/18 05:00 Plt Count 169 K/MM3 (134-434) 03/23/18 05:00 MPV 9.6 fl (7.5-11.1) D 03/23/18 05:00 CMP Sodium 139 mmol/L (136-145) 03/22/18 06:25 Potassium 4.9 mmol/L (3.5-5.1) 03/22/18 06:25 Chloride 107 mmol/L (98-107) 03/22/18 06:25 Carbon Dioxide 30 mmol/L (21-32) 03/22/18 06:25 Anion Gap 2 (8-16) L 03/22/18 06:25 BUN 11 mg/dL (7-18) 03/22/18 06:25 Creatinine 0.9 mg/dL (0.55-1.02) 03/22/18 06:25 Creat Clearance w eGFR > 60 (>60) 03/22/18 06:25 Random Glucose 114 mg/dL (74-106) H 03/22/18 06:25 Calcium 7.7 mg/dL (8.5-10.1) L 03/22/18 06:25 Total Bilirubin 0.7 mg/dL (0.2-1.0) 03/22/18 06:25 AST 16 U/L (15-37) 03/22/18 06:25 ALT 17 U/L (12-78) 03/22/18 06:25 Alkaline Phosphatase 42 U/L (45-117) L 03/22/18 06:25 Total Protein 4.6 g/dl (6.4-8.2) L 03/22/18 06:25 Albumin 2.5 g/dl (3.4-5.0) L 03/22/18 06:25 Microbiology 03/20/18 23:45 Urine - Urine Sal Urine Culture - Final NO GROWTH OBTAINED Assessment: This is a 72 year old female with PMHx of HTN and hyperlipidemia CAD , diastolic dysfunction, who presented to the ED with fall and was found to have a right intertrochanteric fracture Plan 1) Right intertrochanteric fracture - POD #2 right gamma nail - Oxycodone/Acetaminophen prn pain - Right thigh swelling, Dr. Mi fox - Appreciate ortho consult 2) Severe blood loss anemia - Received 2u PRBC with premedication: patient has hx of anaphylaxis to PRBC transfusions - Hx of Thalassemia - Appreciate hematology consult 3) CAD - Hold ASA 2/2 acute drop in Hgb - Resume statin 4) HTN - Continue Accupril 5) Diastolic dysfunction - No signs of decompensated CHF at this time 6) F/E/N: - Sodium controlled diet - Monitor electrolytes 7) Prophylaxis: - Hold all chemical DVT prophylaxis 2/2 severe anemia - PT - TEDs bilaterally 8) Dispo: - Requires continued inpatient care CODE STATUS: FULL CODE Visit type - Emergency Visit Emergency Visit: Yes ED Registration Date: 03/21/18 Care time: The patient presented to the Emergency Department on the above date and was hospitalized for further evaluation of their emergent condition. - New Patient This patient is new to me today: No - Critical Care Critical Care patient: No
[2018-03-23] MEDS: DEXTROSE 5%-0.45% SALINE 1,000 ML IV SCH (21:48)
[2018-03-23] MEDS: ATORVASTATIN CA 20 MG TABLET (FP) PO SCH (21:49)
[2018-03-24] MEDS: morphine SULFATE 4 MG/ML VIAL IVPUSH PRN (00:05)
[2018-03-24 06:31] LABS: BASO % 0.1 % (0-2.0); EOS % 0.1 % (0-4.5); HEMATOCRIT 22.9 % (32.4-45.2); HEMOGLOBIN 7.7 GM/dL (10.7-15.3); LYMPH % 11.2 % (8-40); MCH 24.2 pg (25.7-33.7); MCHC 33.6 g/dl (32.0-36.0); MEAN CELL VOLUME 71.9 fl (80-96); MEAN PLT VOLUME 9.1 fl (7.5-11.1); MONO % 6.4 % (3.8-10.2); NEUT % 82.2 % (42.8-82.8); PLATELET COUNT 167 K/MM3 (134-434); RBC 3.19 M/mm3 (3.60-5.2); RDW 21.8 % (11.6-15.6); WHITE BLOOD COUNT 9.2 K/mm3 (4.0-10.0)
[2018-03-24 07:08] LABS: ALBUMIN 2.4 g/dl (3.4-5.0); ANION GAP 3 (8-16); BILIRUBIN,TOTAL 0.7 mg/dL (0.2-1.0); BLOOD UREA NITROGEN 18 mg/dL (7-18); CALCIUM 7.9 mg/dL (8.5-10.1); CHLORIDE 108 mmol/L (98-107); CO2 29 mmol/L (21-32); CREATININE 0.8 mg/dL (0.55-1.02); GLUCOSE,RANDOM 122 mg/dL (74-106); POTASSIUM 4.4 mmol/L (3.5-5.1); SGOT/AST 13 U/L (15-37); SGPT/ALT 13 U/L (12-78); SODIUM 140 mmol/L (136-145); TOT PROT 4.8 g/dl (6.4-8.2)
[2018-03-24 07:11] LABS: ALK PHOS 44 U/L (45-117)
--- NOTE | 2018-03-24 08:43 | PN ---
Progress Note (short form) - Note Progress Note: Ortho Pt seen and examined s/p right IM gamma nail pod #3 Selected Entries 03/24/18 05:32 Temperature 97.8 F Pulse Rate 68 Respiratory 20 Rate Blood Pressure 129/70 Laboratory Tests 03/24/18 06:10 WBC 9.2 D Hgb 7.7 L Hct 22.9 L Plt Count 167 incision c/d/i, srinivasan intact calf soft, nt, nvi a/p Monitor h/h hold AC until tomorrow PT wbat dvt ppx pain control d/c planning
[2018-03-24] MEDS: DEXTROSE 5%-0.45% SALINE 1,000 ML IV SCH (08:59)
[2018-03-24] MEDS: QUINAPRIL HCL 10 MG TABLET (FP) PO SCH (09:00)
[2018-03-24] MEDS: oxyCODONE HCL 5 MG TABLET PO PRN ×3 (09:13→22:54)
[2018-03-24] MEDS ORDERED: ACETAMINOPHEN 325 MG TABLET (FP) PO PRN (10:03)
--- NOTE | 2018-03-24 10:07 | PN ---
Progress Note, Physician Chief Complaint: Pt sitting in chair in no acute distress. worked with PT. Reports pain is tolerable. Denies any chest discomfort, sob, n/v/d, numbness/tingling. - Current Medication List Current Medications: Active Medications Acetaminophen (Tylenol -) 650 mg PO Q6H PRN PRN Reason: PAIN LEVEL 1-5 Atorvastatin Calcium (Lipitor -) 20 mg PO HS [facility] Last Admin: 03/23/18 21:49 Dose: 20 mg Oxycodone HCl (Roxicodone -) 5 mg PO Q6H PRN PRN Reason: PAIN LEVEL 6-10 Quinapril HCl (Accupril -) 10 mg PO DAILY [facility] Last Admin: 03/24/18 09:00 Dose: 10 mg - Objective Vital Signs: Vital Signs Temperature 97.8 F 03/24/18 05:32 Pulse Rate 68 03/24/18 05:32 Respiratory Rate 20 03/24/18 05:32 Blood Pressure 129/70 03/24/18 05:32 O2 Sat by Pulse Oximetry (%) 100 03/23/18 21:00 Constitutional: Yes: Well Nourished, No Distress Cardiovascular: Yes: WNL, Regular Rate and Rhythm. No: Gallop, Murmur, Rub Respiratory: Yes: WNL, Regular, CTA Bilaterally. No: Accessory Muscle Use, SOB , Tachypnea Gastrointestinal: Yes: WNL, Normal Bowel Sounds, Soft. No: Distention, Tenderness Genitourinary: Yes: WNL Edema: Yes Edema: RLE: Trace Integumentary: Yes: Incision Wound/Incision: Yes: Clean/Dry Neurological: Yes: WNL, Alert, Oriented Psychiatric: Yes: WNL, Alert, Oriented Labs: CBC, BMP 03/24/18 06:10 03/24/18 06:10 INR, PTT INR 1.00 (0.82-1.09) 03/22/18 21:40 Fibrinogen 471.0 mg/dL (238-498) 03/22/18 21:40 Problem List - Problems (1) Fall Code(s): W19.XXXA - UNSPECIFIED FALL, INITIAL ENCOUNTER Qualifiers: Encounter type: initial encounter Qualified Code(s): W19.XXXA - Unspecified fall, initial encounter (2) Hip fracture Code(s): S72.009A - FRACTURE OF UNSP PART OF NECK OF UNSP FEMUR, INIT Qualifiers: Encounter type: subsequent encounter Fracture type: closed Laterality: right (3) Hypertension Code(s): I10 - ESSENTIAL (PRIMARY) HYPERTENSION Qualifiers: Hypertension type: essential hypertension Qualified Code(s): I10 - Essential (primary) hypertension (4) Hyperlipidemia Code(s): E78.5 - HYPERLIPIDEMIA, UNSPECIFIED Qualifiers: Hyperlipidemia type: pure hypercholesterolemia Qualified Code(s): E78.00 - Pure hypercholesterolemia, unspecified; E78.0 - Pure hypercholesterolemia (5) Coronary artery disease Code(s): I25.10 - ATHSCL HEART DISEASE OF [place] CORONARY ARTERY W/O ANG PCTRS Qualifiers: Coronary Disease-Associated Artery/Lesion type: [place] artery [place] vs. transplanted heart: [place] heart Associated angina: without angina Qualified Code(s): I25.10 - Atherosclerotic heart disease of [place] coronary artery without angina pectoris (6) Thalassemia Code(s): D56.9 - THALASSEMIA, UNSPECIFIED (7) Acute blood loss anemia Code(s): D62 - ACUTE POSTHEMORRHAGIC ANEMIA (8) Closed fracture of right hip requiring operative repair Code(s): S72.001A - FRACTURE OF UNSP PART OF NECK OF RIGHT FEMUR, INIT Qualifiers: Encounter type: initial encounter Qualified Code(s): S72.001A - Fracture of unspecified part of neck of right femur, initial encounter for closed fracture Assessment/Plan (1) Closed fracture of right hip requiring operative repair Assessment/Plan: s/p right hip gamma nail surgery complicated by acute blood loss anemia hemodynamically stable now adequate pain control- tylenol/roxicodone IS when awake continue PT SNF upon d/c Code(s): S72.001A - FRACTURE OF UNSP PART OF NECK OF RIGHT FEMUR, INIT Qualifiers: Encounter type: initial encounter Qualified Code(s): S72.001A - Fracture of unspecified part of neck of right femur, initial encounter for closed fracture (2) Acute blood loss anemia Assessment/Plan: post-op anemia hx of thalessemia, transfusion reaction baseline hg around 10 h/h stable today s/p 2 units prbcs transfusion, pre-medicated hemodynamically stable, denies sob/weakness or further symptoms recheck CBC today hg 8.1, will monitor cbc tomorrow hematology following Code(s): D62 - ACUTE POSTHEMORRHAGIC ANEMIA (3) Fall Assessment/Plan: mechanical head ct neg right hip fracture as above Code(s): W19.XXXA - UNSPECIFIED FALL, INITIAL ENCOUNTER Qualifiers: Encounter type: initial encounter Qualified Code(s): W19.XXXA - Unspecified fall, initial encounter (4) Hip fracture Assessment/Plan: as above Code(s): S72.009A - FRACTURE OF UNSP PART OF NECK OF UNSP FEMUR, INIT Qualifiers: Encounter type: initial encounter Fracture type: closed Laterality: right Qualified Code(s): S72.001A - Fracture of unspecified part of neck of right femur, initial encounter for closed fracture (5) Hypertension Assessment/Plan: controlled continue quinapril Code(s): I10 - ESSENTIAL (PRIMARY) HYPERTENSION Qualifiers: Hypertension type: essential hypertension Qualified Code(s): I10 - Essential (primary) hypertension (6) Hyperlipidemia Assessment/Plan: chronic continue statin Code(s): E78.5 - HYPERLIPIDEMIA, UNSPECIFIED Qualifiers: Hyperlipidemia type: pure hypercholesterolemia Qualified Code(s): E78.00 - Pure hypercholesterolemia, unspecified; E78.0 - Pure hypercholesterolemia (7) Coronary artery disease Assessment/Plan: stable continue statin HOLD asa cardiology consult appreciated Code(s): I25.10 - ATHSCL HEART DISEASE OF [place] CORONARY ARTERY W/O ANG PCTRS Qualifiers: Coronary Disease-Associated Artery/Lesion type: [place] artery [place] vs. transplanted heart: [place] heart Associated angina: without angina Qualified Code(s): I25.10 - Atherosclerotic heart disease of [place] coronary artery without angina pectoris (8) Thalassemia Assessment/Plan: thalassemia, followed outpt by pcp baseline hg around 10 hematology following outpt hematology f/u upon d/c Code(s): D56.9 - THALASSEMIA, UNSPECIFIED Dispo: SNF tomorrow if h/h stable
--- NOTE | 2018-03-24 11:44 | PN ---
Progress Note, Physician Chief Complaint: Events noted Not in distress History of Present Illness: Patient was seen and examined. Awake and alert. Chart was reviewed Denies chest pain, SOB or palpitations - Current Medication List Current Medications: Active Medications Acetaminophen (Tylenol -) 650 mg PO Q6H PRN PRN Reason: PAIN LEVEL 1-5 Atorvastatin Calcium (Lipitor -) 20 mg PO HS [facility] Last Admin: 03/23/18 21:49 Dose: 20 mg Oxycodone HCl (Roxicodone -) 5 mg PO Q6H PRN PRN Reason: PAIN LEVEL 6-10 Quinapril HCl (Accupril -) 10 mg PO DAILY [facility] Last Admin: 03/24/18 09:00 Dose: 10 mg - Objective Vital Signs: Vital Signs Temperature 98 F 03/24/18 10:00 Pulse Rate 92 H 03/24/18 10:00 Respiratory Rate 18 03/24/18 10:00 Blood Pressure 144/90 03/24/18 10:00 O2 Sat by Pulse Oximetry (%) 100 03/23/18 21:00 Constitutional: Yes: Well Nourished Eyes: Yes: PERRL HENT: Yes: Atraumatic Neck: Yes: Supple Cardiovascular: Yes: Regular Rate and Rhythm, S1, S2 Respiratory: Yes: CTA Bilaterally Gastrointestinal: Yes: Normal Bowel Sounds, Soft. No: Tenderness Edema: No Labs: CBC, BMP 03/24/18 06:10 03/24/18 06:10 INR, PTT INR 1.00 (0.82-1.09) 03/22/18 21:40 Fibrinogen 471.0 mg/dL (238-498) 03/22/18 21:40 Problem List - Problems (1) Closed fracture of right hip requiring operative repair Code(s): S72.001A - FRACTURE OF UNSP PART OF NECK OF RIGHT FEMUR, INIT Qualifiers: Encounter type: initial encounter Qualified Code(s): S72.001A - Fracture of unspecified part of neck of right femur, initial encounter for closed fracture (2) Coronary artery disease Code(s): I25.10 - ATHSCL HEART DISEASE OF [place] CORONARY ARTERY W/O ANG PCTRS Qualifiers: Coronary Disease-Associated Artery/Lesion type: [place] artery [place] vs. transplanted heart: [place] heart Associated angina: without angina Qualified Code(s): I25.10 - Atherosclerotic heart disease of [place] coronary artery without angina pectoris (3) Hyperlipidemia Code(s): E78.5 - HYPERLIPIDEMIA, UNSPECIFIED Qualifiers: Hyperlipidemia type: pure hypercholesterolemia Qualified Code(s): E78.00 - Pure hypercholesterolemia, unspecified; E78.0 - Pure hypercholesterolemia (4) Hypertension Code(s): I10 - ESSENTIAL (PRIMARY) HYPERTENSION Qualifiers: Hypertension type: essential hypertension Qualified Code(s): I10 - Essential (primary) hypertension (5) Thalassemia Code(s): D56.9 - THALASSEMIA, UNSPECIFIED Assessment/Plan 1. Right IT fracture POD#2 right gamma nail 2. Post-op anemia with underlying thalassemia +/- iron deficiency 3. CAD, angina pectoris 4. HTN/HCVD 5. Hyperlipidemia PLAN: 1. Transfuse packed RBC as needed. Follow CBC 2. Continue Accupril 10 qd and Lipitor 20 qd 3. Resume ASA 81 qd once post-op hemostasis achieved and Hgb stabilizes 4. Analgesia as needed and DVT prophylaxis 5. Eventually will need rehab and PT Further plans are to follow Kamaljit Rowe MD
[2018-03-24 12:27] LABS: BASO % 0.1 % (0-2.0); EOS % 0.3 % (0-4.5); HEMATOCRIT 26.9 % (32.4-45.2); HEMOGLOBIN 8.8 GM/dL (10.7-15.3); LYMPH % 14.8 % (8-40); MCH 23.5 pg (25.7-33.7); MCHC 32.6 g/dl (32.0-36.0); MEAN CELL VOLUME 72.2 fl (80-96); MEAN PLT VOLUME 8.6 fl (7.5-11.1); MONO % 7.2 % (3.8-10.2); NEUT % 77.6 % (42.8-82.8); PLATELET COUNT 207 K/MM3 (134-434); RBC 3.73 M/mm3 (3.60-5.2); RDW 23.1 % (11.6-15.6); WHITE BLOOD COUNT 15.5 K/mm3 (4.0-10.0)
[2018-03-24 15:56] LABS: BASO % 0.5 % (0-2.0); EOS % 1.1 % (0-4.5); HEMATOCRIT 24.7 % (32.4-45.2); HEMOGLOBIN 8.1 GM/dL (10.7-15.3); LYMPH % 17.2 % (8-40); MCH 23.4 pg (25.7-33.7); MCHC 32.6 g/dl (32.0-36.0); MEAN CELL VOLUME 71.7 fl (80-96); MEAN PLT VOLUME 8.5 fl (7.5-11.1); MONO % 7.6 % (3.8-10.2); NEUT % 73.6 % (42.8-82.8); PLATELET COUNT 175 K/MM3 (134-434); RBC 3.45 M/mm3 (3.60-5.2); RDW 22.8 % (11.6-15.6); WHITE BLOOD COUNT 12.5 K/mm3 (4.0-10.0)
--- NOTE | 2018-03-24 21:10 | PN ---
Progress Note (short form) - Note Progress Note: Patient seen and examined Received 2 unit PRBCS with steroid premeds Feels well worked wel with PT today AFVSS Cor: RSR, No murmurs, No gallops Lungs: Clear to P&A Abd: Soft, Normal bowel sounds, No organomegaly Ext:No significant edema Abnormal Lab Results 03/24/18 03/24/18 12:05 15:15 WBC 15.5 H D 12.5 H RBC 3.45 L Hgb 8.8 L D 8.1 L Hct 26.9 L D 24.7 L MCV 72.2 L 71.7 L MCH 23.5 L 23.4 L RDW 23.1 H 22.8 H Active Medications Generic Name Dose Route Start Last Admin Trade Name Freq PRN Reason Stop Dose Admin Acetaminophen 650 mg 03/24/18 10:03 Tylenol - PO Q6H PRN PAIN LEVEL 1-5 Atorvastatin Calcium 20 mg 03/22/18 22:00 03/24/18 21:11 Lipitor - PO 20 mg HS EDGARDO Administration Oxycodone HCl 5 mg 03/24/18 10:04 03/24/18 22:54 Roxicodone - PO 5 mg Q6H PRN Administration PAIN LEVEL 6-10 Quinapril HCl 10 mg 03/22/18 10:00 03/24/18 09:00 Accupril - PO 10 mg DAILY EDGARDO Administration Tetrahydrozoline HCl 1 drop 03/24/18 22:38 Visine - OU QID PRN dry eyes A/P 72 yr old female who is s/p mechanical fall, R. intertrochanteric fracture of the femur, POD #2 with gamma nail fixation and we are consulted for anemia. Anemia Cause : Thalessemia (low MCV of 67) when she came in and Blood loss anemia due to recent surgery +/- iron deficiency+ thalssemia trait s/p PRBCS with steroid premedication ' h/o hives and ??? throat symptoms several yrs. ago --- when she received blood transfusion at the time of childbirth, post op. 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
[2018-03-24] MEDS: ATORVASTATIN CA 20 MG TABLET (FP) PO SCH (21:11)
[2018-03-24] MEDS ORDERED: TETRAHYDROZOLINE HCL EYE DROPS OU PRN (22:38)
[2018-03-25 07:32] LABS: ANION GAP 7 (8-16); CALCIUM 8.5 mg/dL (8.5-10.1); CHLORIDE 106 mmol/L (98-107); CO2 30 mmol/L (21-32); GLUCOSE,RANDOM 80 mg/dL (74-106); POTASSIUM 4.7 mmol/L (3.5-5.1); SODIUM 143 mmol/L (136-145)
[2018-03-25 07:34] LABS: BASO % 0.2 % (0-2.0); HEMATOCRIT 24.1 % (32.4-45.2); LYMPH % 32.8 % (8-40); MCH 23.9 pg (25.7-33.7); MEAN CELL VOLUME 72.3 fl (80-96); MEAN PLT VOLUME 8.5 fl (7.5-11.1); MONO % 6.1 % (3.8-10.2); NEUT % 54.9 % (42.8-82.8); PLATELET COUNT 164 K/MM3 (134-434); RBC 3.34 M/mm3 (3.60-5.2); RDW 22.2 % (11.6-15.6)
[2018-03-25 07:36] LABS: BLOOD UREA NITROGEN 20 mg/dL (7-18); CREATININE 0.9 mg/dL (0.55-1.02); PHOSPHOROUS 3.7 mg/dL (2.5-4.9)
[2018-03-25 08:08] LABS: SERUM IRON SATURATION 20 % (15-55); TOTAL IRON BINDING CAPACITY 232 ug/dL (250-450); UIBC 186 ug/dL (118-369)
[2018-03-25] MEDS: QUINAPRIL HCL 10 MG TABLET (FP) PO SCH (09:23)
[2018-03-25] MEDS: oxyCODONE HCL 5 MG TABLET PO PRN ×2 (09:46→23:09)
--- NOTE | 2018-03-25 09:49 | PN ---
Progress Note (short form) - Note Progress Note: Chief Complaint: Events noted, notes reviewed, complaining of incisional discomfort, denies any chest pain or dyspnea, sinus rhythm is noted History of Present Illness: Seen and examined on telemetry. Events noted, notes reviewed, complaining of incisional discomfort, denies any chest pain or dyspnea, sinus rhythm is noted Medical therapy Current Medications Acetaminophen (Tylenol -) 650 mg PO Q6H PRN PRN Reason: PAIN LEVEL 1-5 Atorvastatin Calcium (Lipitor -) 20 mg PO HS [facility] Last Admin: 03/24/18 21:11 Dose: 20 mg Oxycodone HCl (Roxicodone -) 5 mg PO Q6H PRN PRN Reason: PAIN LEVEL 6-10 Last Admin: 03/25/18 09:46 Dose: 5 mg Quinapril HCl (Accupril -) 10 mg PO DAILY [facility] Last Admin: 03/25/18 09:23 Dose: 10 mg Tetrahydrozoline HCl (Visine -) 1 drop OU QID PRN PRN Reason: dry eyes Review of Systems: Constitutional: Denies fever, chills or weight loss Head and Neck: Denies Headaches, photophobia or blurring of vision Respiratory: Denies cough or sputum production Cardiovascular: As noted above Gastrointestinal: Denies nausea, vomiting, diarrhea or abdominal discomfort Genitourinary: Denies frequency or urgency Musculoskeletal: As noted above Endocrine: No symptoms reported Physical Examination: Last Vital Signs Temp Pulse Resp BP Pulse Ox 98.3 F 76 20 117/60 100 03/25/18 05:45 03/25/18 05:45 03/25/18 05:45 03/25/18 05:45 03/24/18 23:07 Intake & Output 03/22/18 03/23/18 03/24/18 03/25/18 23:59 23:59 23:59 23:59 Intake Total 650 1540 370 Output Total 2800 2400 4200 Balance -2150 -860 -3830 General: Awake, alert, oriented and calm Eyes: Pupils are equally reactive to light and accommodation external ocular muscles are intact anicteric sclera Neck: Supple negative JVD no bruit appreciated Heart: S1-S2 regular Grade no Murmurs clicks or gallops Lungs: Clear to A&P Bilaterally Abdomen: Soft benign normoactive bowel sounds no organomegaly Extremities: Negative edema and intact distal pulses no calf tenderness Lab Data: CBC, BMP 03/25/18 06:35 03/25/18 06:35 ASSESSMENT: 1. Right traumatic IT fracture POD#3 right gamma nail 2. Post-op anemia with underlying thalassemia +/- iron deficiency 3. CAD angina pectoris, stable 4. Diastolic LV dysfunction with class 0 NYHA classification LV failure 5. HTN 6. Hyperlipidemia PLAN: 1. Monitor CBC and maintain Hgb equal or > 8.0, transfuse as needed 2. Continue Accupril 3. Continue Lipitor 20 qd 4. Recommend resumption of ASA once post-op hemostasis is achieved and Hgb stabilizes 5. Pain management as per the primary team 6. Initiate PT and eventual transfer to rehab Edmundo Pelayo M.D.
--- NOTE | 2018-03-25 10:19 | DS ---
Physical Examination Vital Signs: Vital Signs Temperature 98.3 F 03/25/18 05:45 Pulse Rate 76 03/25/18 05:45 Respiratory Rate 20 03/25/18 05:45 Blood Pressure 117/60 03/25/18 05:45 O2 Sat by Pulse Oximetry (%) 98 03/25/18 09:00 Labs: CBC, BMP 03/25/18 06:35 03/25/18 06:35 Discharge Summary Reason For Visit: INTERTROCHANTERIC FX OF RT FEMUR Current Active Problems Acute blood loss anemia (Acute) Closed fracture of right hip requiring operative repair (Acute) Coronary artery disease (Acute) Fall (Acute) Hip fracture (Acute) Hyperlipidemia (Acute) Hypertension (Acute) Pre-operative cardiovascular examination (Acute) Thalassemia (Acute) Condition: Stable - Instructions Referrals: Chato Stark MD [Staff Physician] - 2 Weeks Leatha Umanzor MD [Staff Physician] - 1 Week Billy Mcconnell MD [Primary Care Provider] - 1 Week Disposition: [facility] F[facility] - Home Medications Comprehensive Discharge Medication List: Ambulatory Orders Diazepam [Valium] 5 mg PO ONCE 03/20/18 Quinapril HCl [Accupril -] 10 mg PO DAILY 03/20/18 Simvastatin [Zocor -] 40 mg PO DAILY 03/20/18 Acetaminophen [Tylenol .Regular Strength -] 650 mg PO Q6H PRN tablet 03/25/18 Quinapril HCl [Accupril -] 10 mg PO DAILY tablet 03/25/18 oxyCODONE HCL [Roxicodone -] 5 mg PO Q6H PRN tablet MDD 30 03/25/18
[2018-03-25] MEDS ORDERED: SODIUM CHLORIDE 1,000 ML IV STA (11:05)
--- NOTE | 2018-03-25 11:27 | PN ---
Progress Note, Physician Chief Complaint: Pt sitting in chair. reports dizziness and lightheadedness. worked with PT today and felt dizzy. BP checked and in 80s/50s..s/p quinapril and roxicodone. Reports pain is tolerable. Denies any chest discomfort, sob, n/v/d, numbness/ tingling. - Current Medication List Current Medications: Active Medications Acetaminophen (Tylenol -) 650 mg PO Q6H PRN PRN Reason: PAIN LEVEL 1-5 Atorvastatin Calcium (Lipitor -) 20 mg PO HS [facility] Last Admin: 03/24/18 21:11 Dose: 20 mg Sodium Chloride (Normal Saline -) 1,000 mls @ 1,000 mls/hr IV ASDIR STA Stop: 03/25/18 12:04 Oxycodone HCl (Roxicodone -) 5 mg PO Q6H PRN PRN Reason: PAIN LEVEL 6-10 Last Admin: 03/25/18 09:46 Dose: 5 mg Quinapril HCl (Accupril -) 10 mg PO DAILY [facility] Last Admin: 03/25/18 09:23 Dose: 10 mg Tetrahydrozoline HCl (Visine -) 1 drop OU QID PRN PRN Reason: dry eyes - Objective Vital Signs: Vital Signs Temperature 98 F 03/25/18 10:00 Pulse Rate 88 03/25/18 10:00 Respiratory Rate 18 03/25/18 10:00 Blood Pressure 122/77 03/25/18 10:00 O2 Sat by Pulse Oximetry (%) 98 03/25/18 09:00 Constitutional: Yes: Well Nourished Cardiovascular: Yes: WNL, Regular Rate and Rhythm Respiratory: Yes: WNL, Regular, CTA Bilaterally. No: Accessory Muscle Use, SOB , Tachypnea, Wheezes Gastrointestinal: Yes: WNL, Normal Bowel Sounds, Soft. No: Distention Genitourinary: Yes: WNL Edema: Yes Edema: RLE: Trace Wound/Incision: Yes: Dressing Dry and Intact Neurological: Yes: WNL, Alert, Oriented Psychiatric: Yes: WNL, Alert, Oriented Labs: CBC, BMP 03/25/18 06:35 03/25/18 06:35 INR, PTT INR 1.00 (0.82-1.09) 03/22/18 21:40 Fibrinogen 471.0 mg/dL (238-498) 03/22/18 21:40 Problem List - Problems (1) Fall Code(s): W19.XXXA - UNSPECIFIED FALL, INITIAL ENCOUNTER Qualifiers: Encounter type: initial encounter Qualified Code(s): W19.XXXA - Unspecified fall, initial encounter (2) Hip fracture Code(s): S72.009A - FRACTURE OF UNSP PART OF NECK OF UNSP FEMUR, INIT Qualifiers: Encounter type: subsequent encounter Fracture type: closed Laterality: right (3) Hypertension Code(s): I10 - ESSENTIAL (PRIMARY) HYPERTENSION Qualifiers: Hypertension type: essential hypertension Qualified Code(s): I10 - Essential (primary) hypertension (4) Hyperlipidemia Code(s): E78.5 - HYPERLIPIDEMIA, UNSPECIFIED Qualifiers: Hyperlipidemia type: pure hypercholesterolemia Qualified Code(s): E78.00 - Pure hypercholesterolemia, unspecified; E78.0 - Pure hypercholesterolemia (5) Coronary artery disease Code(s): I25.10 - ATHSCL HEART DISEASE OF [place] CORONARY ARTERY W/O ANG PCTRS Qualifiers: Coronary Disease-Associated Artery/Lesion type: [place] artery [place] vs. transplanted heart: [place] heart Associated angina: without angina Qualified Code(s): I25.10 - Atherosclerotic heart disease of [place] coronary artery without angina pectoris (6) Thalassemia Code(s): D56.9 - THALASSEMIA, UNSPECIFIED (7) Acute blood loss anemia Code(s): D62 - ACUTE POSTHEMORRHAGIC ANEMIA (8) Closed fracture of right hip requiring operative repair Code(s): S72.001A - FRACTURE OF UNSP PART OF NECK OF RIGHT FEMUR, INIT Qualifiers: Encounter type: initial encounter Qualified Code(s): S72.001A - Fracture of unspecified part of neck of right femur, initial encounter for closed fracture (9) Hypotension Code(s): I95.9 - HYPOTENSION, UNSPECIFIED Assessment/Plan (1) Closed fracture of right hip requiring operative repair Assessment/Plan: s/p right hip gamma nail surgery complicated by acute blood loss anemia adequate pain control- tylenol/roxicodone IS when awake continue PT SNF upon d/c Code(s): S72.001A - FRACTURE OF UNSP PART OF NECK OF RIGHT FEMUR, INIT Qualifiers: Encounter type: initial encounter Qualified Code(s): S72.001A - Fracture of unspecified part of neck of right femur, initial encounter for closed fracture (2) Acute blood loss anemia Assessment/Plan: post-op anemia hx of thalessemia, transfusion reaction baseline hg around 10 h/h stable today s/p 2 units prbcs transfusion, pre-medicated pt hypotensive, reports dizziness/lightheadedness today NS 1L bolus, orthostatics ordered recheck CBC at noon hematology following Code(s): D62 - ACUTE POSTHEMORRHAGIC ANEMIA (3) Fall Assessment/Plan: mechanical head ct neg right hip fracture as above Code(s): W19.XXXA - UNSPECIFIED FALL, INITIAL ENCOUNTER Qualifiers: Encounter type: initial encounter Qualified Code(s): W19.XXXA - Unspecified fall, initial encounter (4) Hip fracture Assessment/Plan: as above Code(s): S72.009A - FRACTURE OF UNSP PART OF NECK OF UNSP FEMUR, INIT Qualifiers: Encounter type: initial encounter Fracture type: closed Laterality: right Qualified Code(s): S72.001A - Fracture of unspecified part of neck of right femur, initial encounter for closed fracture (5) Hypertension Assessment/Plan: controlled continue quinapril Code(s): I10 - ESSENTIAL (PRIMARY) HYPERTENSION Qualifiers: Hypertension type: essential hypertension Qualified Code(s): I10 - Essential (primary) hypertension (6) Hyperlipidemia Assessment/Plan: chronic continue statin Code(s): E78.5 - HYPERLIPIDEMIA, UNSPECIFIED Qualifiers: Hyperlipidemia type: pure hypercholesterolemia Qualified Code(s): E78.00 - Pure hypercholesterolemia, unspecified; E78.0 - Pure hypercholesterolemia (7) Coronary artery disease Assessment/Plan: stable continue statin HOLD asa cardiology consult appreciated Code(s): I25.10 - ATHSCL HEART DISEASE OF [place] CORONARY ARTERY W/O ANG PCTRS Qualifiers: Coronary Disease-Associated Artery/Lesion type: [place] artery [place] vs. transplanted heart: [place] heart Associated angina: without angina Qualified Code(s): I25.10 - Atherosclerotic heart disease of [place] coronary artery without angina pectoris (8) Thalassemia Assessment/Plan: thalassemia, followed outpt by pcp baseline hg around 10 hematology following outpt hematology f/u upon d/c Code(s): D56.9 - THALASSEMIA, UNSPECIFIED (9) Hypotension Assessment/Plan: BP 80s/50s this am when sitting in chair with dizziness/lightheadedness pt had taken roxicodone/quinapril prior suspect related to meds repeat CBC stable, incision cdi orthostatics ordered NS bolus, IVF will monitor Code(s): I95.9 - HYPOTENSION, UNSPECIFIED Dispo: SNF tomorrow if medically stable
[2018-03-25 12:30] LABS: BASO % 0.2 % (0-2.0); HEMOGLOBIN 8.1 GM/dL (10.7-15.3); LYMPH % 18.9 % (8-40); MCH 23.3 pg (25.7-33.7); MCHC 32.4 g/dl (32.0-36.0); MEAN CELL VOLUME 72.1 fl (80-96); MEAN PLT VOLUME 8.2 fl (7.5-11.1); NEUT % 67.9 % (42.8-82.8); PLATELET COUNT 167 K/MM3 (134-434); RBC 3.47 M/mm3 (3.60-5.2); WHITE BLOOD COUNT 9.4 K/mm3 (4.0-10.0)
[2018-03-25] MEDS ORDERED: SODIUM CHLORIDE 1,000 ML IV SCH (13:00)
[2018-03-25] MEDS: DOCUSATE SODIUM 100 MG CAPSULE (FP) PO SCH ×2 (13:24→21:10)
--- NOTE | 2018-03-25 17:28 | PN ---
Progress Note (short form) - Note Progress Note: Patient seen and examined no complains offered AFVSS Cor: RSR, No murmurs, No gallops Lungs: Clear to P&A Abd: Soft, Normal bowel sounds, No organomegaly Ext:No significant edema Last Vital Signs Temp Pulse Resp BP Pulse Ox 98.2 F 102 H 18 129/62 98 03/25/18 13:54 03/25/18 13:54 03/25/18 13:54 03/25/18 13:54 03/25/18 09:00 CBC, BMP 03/25/18 11:50 03/25/18 06:35 Current Medications Generic Name Dose Route Start Last Admin Trade Name Freq PRN Reason Stop Dose Admin Acetaminophen 650 mg 03/24/18 10:03 03/25/18 17:15 Tylenol - PO 650 mg Q6H PRN Administration PAIN LEVEL 1-5 Atorvastatin Calcium 20 mg 03/22/18 22:00 03/24/18 21:11 Lipitor - PO 20 mg HS EDGARDO Administration Docusate Sodium 100 mg 03/25/18 13:00 03/25/18 13:24 Colace - PO 100 mg BID EDGARDO Administration Sodium Chloride 1,000 mls @ 75 mls/hr 03/25/18 13:00 03/25/18 13:25 Normal Saline - IV 75 mls/hr ASDIR EDGARDO Administration Oxycodone HCl 2.5 mg 03/25/18 12:56 Roxicodone - PO Q6H PRN PAIN LEVEL 6-10 Quinapril HCl 10 mg 03/22/18 10:00 03/25/18 09:23 Accupril - PO 10 mg DAILY EDGARDO Administration Tetrahydrozoline HCl 1 drop 03/24/18 22:38 Visine - OU QID PRN dry eyes 72 yr old female who is s/p mechanical fall, R. intertrochanteric fracture of the femur, POD #2 with gamma nail fixation and we are consulted for anemia. Anemia Cause : Thalessemia (low MCV of 67) when she came in and Blood loss anemia due to recent surgery +/- iron deficiency+ thalssemia trait s/p PRBCS with steroid premedication ' igA levels normal since she tolerated 2 transfusions with premeds --benadry/steroid/H2 pavel-- doubt Ig A deficiency
[2018-03-25] MEDS ORDERED: QUINAPRIL HCL 10 MG TABLET (FP) PO SCH (20:31)
[2018-03-25] MEDS: ATORVASTATIN CA 20 MG TABLET (FP) PO SCH (21:09)
[2018-03-26 07:43] LABS: BASO % 0.4 % (0-2.0); EOS % 6.3 % (0-4.5); HEMATOCRIT 24.5 % (32.4-45.2); LYMPH % 21.5 % (8-40); MCH 23.5 pg (25.7-33.7); MCHC 32.8 g/dl (32.0-36.0); MEAN CELL VOLUME 71.5 fl (80-96); MEAN PLT VOLUME 8.5 fl (7.5-11.1); MONO % 6.7 % (3.8-10.2); NEUT % 65.1 % (42.8-82.8); PLATELET COUNT 180 K/MM3 (134-434); RBC 3.42 M/mm3 (3.60-5.2); RDW 23.6 % (11.6-15.6); WHITE BLOOD COUNT 7.3 K/mm3 (4.0-10.0)
[2018-03-26] MEDS ORDERED: PT OWN MED DRAWER 7, Y5N ONE (08:07)
[2018-03-26 08:44] LABS: ANION GAP 5 (8-16); BLOOD UREA NITROGEN 16 mg/dL (7-18); CALCIUM 7.7 mg/dL (8.5-10.1); CHLORIDE 108 mmol/L (98-107); CO2 28 mmol/L (21-32); CREATININE 0.8 mg/dL (0.55-1.02); GLUCOSE,RANDOM 78 mg/dL (74-106); POTASSIUM 4.5 mmol/L (3.5-5.1); SODIUM 141 mmol/L (136-145)
[2018-03-26] MEDS: oxyCODONE HCL 5 MG TABLET PO PRN (08:52)
[2018-03-26] MEDS: DOCUSATE SODIUM 100 MG CAPSULE (FP) PO SCH (09:08)
--- NOTE | 2018-03-26 09:43 | PN ---
Progress Note, Physician History of Present Illness: POD#4 post gamma nail, denies chest pain, dyspnea, near or true syncope, fatigue , tolerating PT. Hgb stable post 2 U pRBC transfusion. - Current Medication List Current Medications: Active Medications Acetaminophen (Tylenol -) 650 mg PO Q6H PRN PRN Reason: PAIN LEVEL 1-5 Last Admin: 03/25/18 17:15 Dose: 650 mg Atorvastatin Calcium (Lipitor -) 20 mg PO HS [facility] Last Admin: 03/25/18 21:09 Dose: 20 mg Docusate Sodium (Colace -) 100 mg PO BID [facility] Last Admin: 03/26/18 09:08 Dose: Not Given Sodium Chloride (Normal Saline -) 1,000 mls @ 75 mls/hr IV ASDIR [facility] Last Admin: 03/25/18 13:25 Dose: 75 mls/hr Oxycodone HCl (Roxicodone -) 2.5 mg PO Q6H PRN PRN Reason: PAIN LEVEL 6-10 Last Admin: 03/26/18 08:52 Dose: 2.5 mg Quinapril HCl (Accupril -) 10 mg PO DAILY [facility] Last Admin: 03/26/18 09:08 Dose: Not Given Tetrahydrozoline HCl (Visine -) 1 drop OU QID PRN PRN Reason: dry eyes Last Admin: 03/25/18 21:19 Dose: 1 drop - Objective Vital Signs: Vital Signs Temperature 99.3 F 03/26/18 05:00 Pulse Rate 88 03/26/18 05:00 Respiratory Rate 20 03/26/18 05:00 Blood Pressure 135/71 03/26/18 05:00 O2 Sat by Pulse Oximetry (%) 99 03/25/18 19:50 Constitutional: Yes: No Distress, Calm Neck: Yes: Supple Cardiovascular: Yes: Regular Rate and Rhythm Respiratory: Yes: Regular, CTA Bilaterally Gastrointestinal: Yes: Normal Bowel Sounds, Soft Edema: No Labs: CBC, BMP 03/26/18 06:44 03/26/18 06:44 INR, PTT INR 1.00 (0.82-1.09) 03/22/18 21:40 Fibrinogen 471.0 mg/dL (238-498) 03/22/18 21:40 Problem List - Problems (1) Coronary artery disease Code(s): I25.10 - ATHSCL HEART DISEASE OF [place] CORONARY ARTERY W/O ANG PCTRS Qualifiers: Coronary Disease-Associated Artery/Lesion type: [place] artery [place] vs. transplanted heart: [place] heart Associated angina: without angina Qualified Code(s): I25.10 - Atherosclerotic heart disease of [place] coronary artery without angina pectoris (2) Hip fracture Code(s): S72.009A - FRACTURE OF UNSP PART OF NECK OF UNSP FEMUR, INIT Qualifiers: Encounter type: subsequent encounter Fracture type: closed Laterality: right (3) Hyperlipidemia Code(s): E78.5 - HYPERLIPIDEMIA, UNSPECIFIED Qualifiers: Hyperlipidemia type: pure hypercholesterolemia Qualified Code(s): E78.00 - Pure hypercholesterolemia, unspecified; E78.0 - Pure hypercholesterolemia (4) Hypertension Code(s): I10 - ESSENTIAL (PRIMARY) HYPERTENSION Qualifiers: Hypertension type: essential hypertension Qualified Code(s): I10 - Essential (primary) hypertension Assessment/Plan 10/07/2013 Echo: Normal LV size and fxn tr-mild MR 10/08/2013 P-Myoview: No ischemia, normal LV fxn 1. Right traumatic IT fracture POD#4 right gamma nail 2. Post-op anemia with underlying thalassemia +/- iron deficiency post 2 U pRBC transfusion 3. CAD angina pectoris, stable 4. Diastolic LV dysfunction with class 0 NYHA classification LV failure 5. HTN 6. Hyperlipidemia PLAN: 1. Monitor CBC and maintain Hgb equal or > 8.0, transfuse as needed 2. Continue Accupril 10 qd 3. Continue Lipitor 20 qd 4. Recommend resumption of ASA 81 qd once post-op hemostasis is achieved and Hgb stabilizes 5. Pain management as per the primary team 6. Continue PT->SNF
--- NOTE | 2018-03-26 10:03 | DS ---
Physical Examination Vital Signs: Vital Signs Temperature 99.3 F 03/26/18 05:00 Pulse Rate 88 03/26/18 05:00 Respiratory Rate 20 03/26/18 05:00 Blood Pressure 135/71 03/26/18 05:00 O2 Sat by Pulse Oximetry (%) 99 03/25/18 19:50 Constitutional: Yes: Well Nourished, No Distress Cardiovascular: Yes: WNL, Regular Rate and Rhythm. No: Gallop, Murmur Respiratory: Yes: WNL, Regular, CTA Bilaterally. No: SOB, Tachypnea, Wheezes Gastrointestinal: Yes: WNL, Normal Bowel Sounds, Soft. No: Distention, Tenderness Edema: Yes Edema: RLE: Trace Wound/Incision: Yes: Dressing Dry and Intact Neurological: Yes: WNL, Alert, Oriented Psychiatric: Yes: WNL, Alert, Oriented Labs: CBC, BMP 03/26/18 06:44 03/26/18 06:44 Discharge Summary Reason For Visit: INTERTROCHANTERIC FX OF RT FEMUR Current Active Problems Acute blood loss anemia (Acute) Closed fracture of right hip requiring operative repair (Acute) Coronary artery disease (Acute) Fall (Acute) Hip fracture (Acute) Hyperlipidemia (Acute) Hypertension (Acute) Hypotension (Acute) Pre-operative cardiovascular examination (Acute) Thalassemia (Acute) Hospital Course: is a pleasant 72 year old female who was admitted s/p mechanical fall w/ right hip fracture. She underwent surgery- rip hip gamma nail by . Complicated by acute blood loss anemia, she was transfused w/ 2units prbcs w/ premedication. Hematology assistance appreciated. Pt has thalassemia, baseline hg around 10, pt advised to f/u with hematology outpt upon discharge. H /H stable, pt hemodynamically stable today. Denies any chest pain, sob, lightheadedness. vital signs stable. She is working well with PT. Pain adequately controlled. Discussed with today and he has cleared her for discharge. He advises weight bearing on RLE as tolerated, DVT boots in rehab, HOLD Aspirin for now. Otherwise, pt is medically cleared for discharge. Pt advised to f/u as directed. Condition: Stable - Instructions Diet, Activity, Other Instructions: resume prev diet weightbearing on RLE as tolerated incision open to air, call office if increased redness, swelling, drainage, fevers Ortho recommends DVT boots HOLD Aspirin until you f/u with F/U with PCP in 1 week Come to ED if symptoms of SOB, chest pain, n/v/d, unilateral weakness Referrals: Chato Stark MD [Staff Physician] - 2 Weeks Leatha Umanzor MD [Staff Physician] - 1 Week Billy Mcconnell MD [Primary Care Provider] - 1 Week Disposition: LONGTERM FACILITY - Home Medications Comprehensive Discharge Medication List: Ambulatory Orders Diazepam [Valium] 5 mg PO ONCE 03/20/18 Quinapril HCl [Accupril -] 10 mg PO DAILY 03/20/18 Simvastatin [Zocor -] 40 mg PO DAILY 03/20/18 Acetaminophen [Tylenol .Regular Strength -] 650 mg PO Q6H PRN tablet 03/25/18 Quinapril HCl [Accupril -] 10 mg PO DAILY tablet 03/25/18 oxyCODONE HCL [Roxicodone -] 5 mg PO Q6H PRN tablet MDD 30 03/25/18 Docusate Sodium [Colace -] 100 mg PO BID capsule 03/26/18 oxyCODONE HCL [Roxicodone -] 2.5 mg PO Q6H PRN tablet MDD 30 03/26/18
[2018-03-26] MEDS ORDERED: oxyCODONE HCL 5 MG TABLET PO ONE (10:54)
--- NOTE | 2018-03-26 11:53 | PN ---
Progress Note (short form) - Note Progress Note: Ortho Pt seen and examined s/p right IM gamma nail pod Selected Entries 03/26/18 05:00 Temperature 99.3 F Pulse Rate 88 Respiratory 20 Rate Blood Pressure 135/71 Laboratory Tests 03/26/18 06:44 WBC 7.3 Hgb 8.0 L Hct 24.5 L Plt Count 180 incision c/d/i, srinivasan intact calf soft, nt, nvi a/p PT wbat dvt ppx pain control d/c to rehab today f/u in 10-14 days
[2018-03-26 12:43] VITALS: BP 127/60; PULSE 84; TEMP 98.9
[2018-03-27 08:06] LABS: IGA IMMUNOGLOBULIN 90 mg/dL (64-422); IGM IMMUNOGLOBULIN 45 mg/dL (26-217)
== END 2018-03-26 11:57 | disposition short-term general hospital (02) | DRG 481 ==
LOC: JER 20:34 → JERBED 03-21 00:03 → UNDOADMIN 03-21 01:09 → J8W 03-21 02:53 → J6S 03-21 15:38 → J4W 03-22 20:52
PROVIDERS: ADMIT Internal Medicine; ATTEND Internal Medicine
PROC: 0QS604Z Reposition Right Upper Femur with Internal Fixation Device, Open Approach (ICD-10-PCS; principal; 2018-03-21 12:30)
PROC: 30233N1 Transfusion of Nonautologous Red Blood Cells into Peripheral Vein, Percutaneous Approach (ICD-10-PCS; 2018-03-22)
DX: S72.144A Nondisplaced intertrochanteric fracture of right femur, initial encounter for closed fracture (principal); I25.110 Atherosclerotic heart disease of native coronary artery with unstable angina pectoris; D62 Acute posthemorrhagic anemia; S00.411A Abrasion of right ear, initial encounter; I10 Essential (primary) hypertension; E78.5 Hyperlipidemia, unspecified; D56.9 Thalassemia, unspecified; I11.9 Hypertensive heart disease without heart failure; W18.39XA Other fall on same level, initial encounter; Y93.89 Activity, other specified; Y92.488 Other paved roadways as the place of occurrence of the external cause
CPT/HCPCS: 36415; 36430; 70450-TC; 71045-TC-FY; 72170-TC-FY; 76000-TC-FY; 80048; 80053; 80307; 81003; 82728; 82784; 83540; 83550; 83615; 83735; 84100; 85025; 85027; 85384; 85610; 85730; 86850; 86880; 86900; 86901; 86922; 87086; 90715; 93005; 93010; 94010; 94760; 97116-GP; 99284-25; J7030; P9038; P9058

== ENCOUNTER 2019-09-19 11:32 | Emergency (ER) | payer OTHER, BC ==
[2019-09-19 11:40] VITALS: TEMP 98; BMI 26.5
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
--- NOTE | 2019-09-19 12:41 | PDOC ---
Attending Attestation - Resident Resident Name: Tea Flores - ED Attending Attestation I have performed the following: I have examined & evaluated the patient, The case was reviewed & discussed with the resident, I agree w/resident's findings & plan, Exceptions are as noted - HPI HPI: 09/19/19 13:05 Ms. Bazan is a 73 yo F h/o HTN, HLD taking a baby aspirin daily She presents to the ER for assessment s/p fall Pt was at home 2 days ago and walked up her stairs When she made it to the top of the stairs, she is not sure what happened (since she doesn't remember tripping or becoming unsteady) She then fell from the top of the wooden stairs and fell on to the bottom landing (which has a rug) She recalls the entire fall No vomiting, no headache She was able to get herself up to standing and go upstairs to her room She did have several superficial lacerations which she dressed herself Pt presents now due to severe chest wall pain Pain is 8/10, no radiations, located on the right chest wall - Physicial Exam PE: 09/19/19 12:40 GENERAL: The patient is in no acute distress. ENT: Ears normal, nares patent, oropharynx clear without exudates. Moist mucous membranes. NECK: Normal range of motion, supple, no midline tenderness LUNGS: Breath sounds equal, clear to auscultation bilaterally. No wheezes, and no crackles. HEART: Regular rate and rhythm, normal S1 and S2 without murmur, rub or gallop. ABDOMEN: Soft, nontender, no guarding or rebound EXTREMITIES: Normal range of motion, no edema. MUSCULOSKELETAL: flexion and extension of the hips, knees, ankles, no difficulty NEUROLOGICAL: Cranial nerves II through XII grossly intact. Normal speech. No focal neurological deficits. SKIN: multiple areas of bruising - left clavical, right posterior thoracic region, right medial leg Abrasions right forearm 09/19/19 13:08 - Medical Decision Making 09/19/19 12:40 EKG: NSR rate of 96 bpm, axis nml, intervals nml, no st elevation or depression, t waves upright 09/19/19 13:09 73 yo F s/p fall down a flight of stairs Pt with multiple areas of bruising Will do: CT head/C spine/Chest Basic labs Analgesia Will re assess 09/19/19 14:16 Laboratory Tests 03/26/18 09/19/19 09/19/19 06:44 13:15 13:15 WBC 7.3 7.2 Hgb 8.0 L 9.9 L Hct 24.5 L 31.7 L D Plt Count 180 214 Anion Gap Creatinine Creatine Kinase 163 Troponin I < 0.02 09/19/19 13:15 WBC Hgb Hct Plt Count Anion Gap 8 Creatinine 1.0 Creatine Kinase Troponin I CT pending 09/19/19 15:38 CT: Head: no ICH, no mass C spine: no fracture or dislocation Chest: no rib fractures, no spinal fractures CT abd demonstrates possibly polycystic kidney disease Will give copies of CT finding Will discharge to home Follow up with PMD
[2019-09-19] MEDS ORDERED: ACETAMINOPHEN 1000 MG/100 ML VIAL (NON FORMULARY) IVPB ONE (13:06)
[2019-09-19] MEDS ORDERED: ACETAMINOPHEN INJECTION 100 ML IVPB ONE (13:31)
[2019-09-19 13:41] LABS: BASO % 1.2 % (0-2.0); HEMATOCRIT 31.7 % (32.4-45.2); HEMOGLOBIN 9.9 GM/dL (10.7-15.3); LYMPH % 19.3 % (8-40); MCHC 31.4 g/dl (32.0-36.0); MEAN CELL VOLUME 63.8 fl (80-96); MONO % 6.3 % (3.8-10.2); NEUT % 67.2 % (42.8-82.8); PLATELET COUNT 214 K/MM3 (134-434); RBC 4.97 M/mm3 (3.60-5.2); RDW 15.5 % (11.6-15.6); WHITE BLOOD COUNT 7.2 K/mm3 (4.0-10.0)
[2019-09-19 14:10] LABS: ALBUMIN 3.3 g/dl (3.4-5.0); BILIRUBIN,TOTAL 0.8 mg/dL (0.2-1); BLOOD UREA NITROGEN 16.2 mg/dL (7-18); CALCIUM 8.8 mg/dL (8.5-10.1); POTASSIUM 4.4 mmol/L (3.5-5.1); TOT PROT 5.7 g/dl (6.4-8.2)
[2019-09-19 14:24] LABS: INR 0.95 (0.83-1.09); PROTHROMBIN TIME (PATIENT) 11.2 SEC (9.7-13.0)
--- NOTE | 2019-09-19 14:52 | EKG ---
Test Reason : Blood Pressure : / mmHG Vent. Rate : 096 BPM Atrial Rate : 096 BPM P-R Int : 146 ms QRS Dur : 078 ms QT Int : 348 ms P-R-T Axes : 058 057 058 degrees QTc Int : 439 ms NORMAL SINUS RHYTHM NONSPECIFIC ST ABNORMALITY ABNORMAL ECG WHEN COMPARED WITH ECG OF 20-MAR-2018 21:51, NO SIGNIFICANT CHANGE WAS FOUND Confirmed by CHRIS ALAN, TERENCE ([id number]) on 09/19/2019 2:52:27 PM Referred By: Confirmed By:TERENCE PEREZ MD
[2019-09-19 16:33] LABS: MACROCYTOSIS 0; PLATELET ESTIMATE NORMAL; TEAR DROP CELLS 1+
[2019-09-19 16:44] LABS: ANISOCYTOSIS 2+
[2019-09-19 16:50] LABS: OVALOCYTE 1+
[2019-09-19 17:03] VITALS: BP 151/83; PULSE 85
== END 2019-09-19 17:03 | disposition home or self-care (01) ==
LOC: JER 11:32 → SUPCPDRO 11:32 → JER 17:03
PROC: 3E033NZ Introduction of Analgesics, Hypnotics, Sedatives into Peripheral Vein, Percutaneous Approach (ICD-10-PCS; principal; 2019-09-19)
DX: S29.8XXA Other specified injuries of thorax, initial encounter (principal); R07.81 Pleurodynia; W10.8XXA Fall (on) (from) other stairs and steps, initial encounter; Y93.89 Activity, other specified; Y92.018 Other place in single-family (private) house as the place of occurrence of the external cause; Y99.8 Other external cause status; I10 Essential (primary) hypertension; E78.5 Hyperlipidemia, unspecified; D64.9 Anemia, unspecified; D56.9 Thalassemia, unspecified; F41.9 Anxiety disorder, unspecified; Z79.82 Long term (current) use of aspirin
CPT/HCPCS: 36415; 70450-TC; 71250-TC; 72125-TC; 80053; 82550; 82553; 84484; 85025; 85610; 93005; 93010; 96374; 99283-25; J0131

== ENCOUNTER 2024-03-16 10:18 | Emergency (ER) | payer OTHER, BC ==
[2024-03-16 10:30] VITALS: BP 130/74; PULSE 103; RESP 17; TEMP 97.5; BMI 25.2
[2024-03-16] MEDS ORDERED: ACETAMINOPHEN INJECTION 100 ML IVPB ONE (12:17)
[2024-03-16] MEDS: LACTATED RINGERS SOLUTION 1000 ML INFUS.BAG IV ONE (12:30)
[2024-03-16] MEDS: ACETAMINOPHEN 1000 MG/100 ML BAG IVPB ONE (12:30)
[2024-03-16 12:39] LABS: BASO % 0.5 % (0-2.0); EOS % 2.4 % (0-4.5); HEMATOCRIT 34.4 % (32.4-45.2); HEMOGLOBIN 10.9 GM/dL (10.7-15.3); LYMPH % 8.9 % (8-40); MCHC 31.6 g/dl (32.0-36.0); MEAN CELL VOLUME 61.9 fl (80-96); MEAN PLT VOLUME 8.6 fl (7.5-11.1); NEUT % 82.2 % (42.8-82.8); PLATELET COUNT 280 10^3/uL (134-434); RBC 5.56 M/mm3 (3.60-5.2); RDW 15.9 % (11.6-15.6); WHITE BLOOD COUNT 13.6 K/mm3 (4.0-10.0)
[2024-03-16 12:40] LABS: MCH 19.6 pg (25.7-33.7)
[2024-03-16 13:03] LABS: POTASSIUM 4.6 mmol/L (3.5-5.1)
[2024-03-16 13:05] LABS: CALCIUM 8.7 mg/dL (8.5-10.1)
[2024-03-16 13:06] LABS: ALBUMIN 3.2 g/dl (3.4-5.0); BLOOD UREA NITROGEN 28.8 mg/dL (7-18); MAGNESIUM 1.9 mg/dL (1.8-2.4)
[2024-03-16 13:08] LABS: CREATININE 1.3 mg/dL (0.55-1.3)
[2024-03-16 13:10] LABS: BILIRUBIN,TOTAL 0.8 mg/dL (0.2-1)
[2024-03-16 14:05] LABS: EPI CELLS 13 /uL (0-25.1); HYALINE CASTS 0 /uL (0-3.1); URINE APPEARANCE CLEAR; URINE BACTERIA 91 /uL (0-1359); URINE BILIRUBIN NEGATIVE (NEGATIVE); URINE COLOR YELLOW; URINE GLUCOSE (UA) NEGATIVE (NEGATIVE); URINE KETONE TRACE (NEGATIVE); URINE LEUK ESTERASE 1+ (NEGATIVE); URINE NITRITE NEGATIVE (NEGATIVE); URINE PROTEIN NEGATIVE (NEGATIVE); URINE RBC 9 /uL (0-23.9); URINE UROBILINOGEN 0.2 mg/dL (0.2-1.0); URINE WBC 20 /uL (0-25.8)
== END 2024-03-16 15:22 | disposition home or self-care (01) ==
LOC: JER 10:18
PROC: 3E030NZ Introduction of Analgesics, Hypnotics, Sedatives into Peripheral Vein, Open Approach (ICD-10-PCS; principal; 2024-03-16)
DX: R19.7 Diarrhea, unspecified (principal); R25.2 Cramp and spasm; R53.1 Weakness; Z20.822 Contact with and (suspected) exposure to COVID-19
CPT/HCPCS: 0241U-QW; 36415; 74177-TC; 80053; 81003; 83605; 83735; 85025; 87086; 87186; 99284-25; 99285-25; J0131; Q9967

== ENCOUNTER 2024-03-16 21:58 | Emergency (ER) | payer OTHER, BC ==
[2024-03-16 22:05] VITALS: BP 138/84; PULSE 125; RESP 20; BMI 25.0
[2024-03-16] MEDS: LACTATED RINGERS SOLUTION 1000 ML INFUS.BAG IV STA (22:49)
[2024-03-16] MEDS: ACETAMINOPHEN 1000 MG/100 ML BAG IVPB ONE (22:49)
[2024-03-16] MEDS: SODIUM CHLORIDE 0.9% 500 ML INFUS.BAG IV ONE (23:00)
[2024-03-16] MEDS ORDERED: ACETAMINOPHEN INJECTION 100 ML IVPB ONE (23:55)
== END 2024-03-17 01:02 | disposition home or self-care (01) ==
LOC: JER 21:58
PROC: 3E030NZ Introduction of Analgesics, Hypnotics, Sedatives into Peripheral Vein, Open Approach (ICD-10-PCS; principal; 2024-03-16)
DX: R19.7 Diarrhea, unspecified (principal); R11.10 Vomiting, unspecified
CPT/HCPCS: 74177-TC; 83605; 99285-25; J0131; Q9967

== ENCOUNTER 2024-05-27 04:26 | Day surgery (SDC) | payer OTHER, BC ==
[2024-05-25 12:11] VITALS: BMI 24.7
[2024-05-27 10:35] VITALS: TEMP 97.4
[2024-05-27 10:47] VITALS: RESP 14
[2024-05-27 11:29] VITALS: BP 143/73; PULSE 63
== END 2024-05-27 11:40 | disposition home or self-care (01) ==
LOC: JASU-ENDO 04:26
PROVIDERS: ATTEND Internal Medicine Gastroenterology
PROC: 0DBN8ZX Excision of Sigmoid Colon, Via Natural or Artificial Opening Endoscopic, Diagnostic (ICD-10-PCS; 2024-05-27)
PROC: 0DB98ZX Excision of Duodenum, Via Natural or Artificial Opening Endoscopic, Diagnostic (ICD-10-PCS; 2024-05-27)
PROC: 0DB78ZX Excision of Stomach, Pylorus, Via Natural or Artificial Opening Endoscopic, Diagnostic (ICD-10-PCS; 2024-05-27)
PROC: 0DB68ZX Excision of Stomach, Via Natural or Artificial Opening Endoscopic, Diagnostic (ICD-10-PCS; 2024-05-27)
PROC: 0DBH8ZX Excision of Cecum, Via Natural or Artificial Opening Endoscopic, Diagnostic (ICD-10-PCS; principal; 2024-05-27 10:00)
DX: Z12.11 Encounter for screening for malignant neoplasm of colon (principal); D12.0 Benign neoplasm of cecum; D12.5 Benign neoplasm of sigmoid colon; K57.30 Diverticulosis of large intestine without perforation or abscess without bleeding; K29.00 Acute gastritis without bleeding; R19.5 Other fecal abnormalities
CPT/HCPCS: 88305-TC; 88342-TC